=== PATIENT | female | born 1975 | race Caucasian/White ===

== ENCOUNTER 2017-12-04 10:47 | Inpatient (IN) | payer OTHER, SELFPAY ==
[2017-11-26 14:06] VITALS: BMI 25.4
[2017-12-04] VITALS (23 sets, daily range): BP systolic 102–125; BP diastolic 60–82; PULSE 86–107; RESP 12–20; TEMP 36.3–43; O2SAT 95–100
[2017-12-04 06:32] LABS: Urine Pregnancy, HCG Qual. Negative (Negative)
--- NOTE | 2017-12-04 06:57 | HMH.ANESCL ---
[facility] Anesthesia Checklist - Patient Identification Patient Identification: Arm Band, Verbal (Name & ) - Structural Data Admitted From: Home [facility] Procedure(s) Verified: Yes Verified Documents: Surgical Consent - NPO Status Verified Time NPO: 00:00 - Additional verifications Patient : No Anesthesia Reactions: Yes (n/v) Hx Blood Transfusions: No Blood Transfusion Reaction: No Cephalosporin Allergy: No Previous Colonoscopy: No - Cardiovascular Assessment Heart Sounds: S1 & S2 Pulse Strength: Strong Pulse Rhythm: Regular Peripheral Edema: No - Airway Assessment C-Spine Mobility Assessed: Yes TMJ Mobility Assessed: Yes Dentition: Good Dentition - Neurological Assessment Level of Consciousness: Awake, Alert, Appropriate Hx Seizures: No Numbness or tingling in extremities: No - Genitourinary Assessment Urinary Incontinence: None - Anesthesia Plan Anesthesia Risk discussed: Yes Anesthesia Plan: Verified ASA Class: II Anesthesia Type: General [facility] Anesthesia HX I have reviewed the patient's past medical history: Yes Medical History: Reports:: Gastroesophageal Reflux Disease Denies:: Cancer, Diabetes Mellitus Type 1, Diabetes Mellitus Type 2, MRSA, Seizures Laterality Cases: Left: ACL Repair, Bilateral: Tonsillectomy Other Surgeries: Yes: Dilation and Curettage, Other. No: Pacemaker Amputation: No Fractures: No *Family Hx:: Asthma, Coronary Artery Disease, Diabetes, Heart Attack, Hyperlipidemia, Hypertension, Kidney Disease
--- NOTE | 2017-12-04 07:02 | P.PN_ITS ---
[facility] Anesthesia Checklist - Patient Identification Patient Identification: Arm Band, Verbal (Name & ) - Structural Data Admitted From: Home [facility] Procedure(s) Verified: Yes Verified Documents: Surgical Consent - NPO Status Verified Time NPO: 00:00 - Additional verifications Patient : No Anesthesia Reactions: Yes (n/v) Hx Blood Transfusions: No Blood Transfusion Reaction: No Cephalosporin Allergy: No Previous Colonoscopy: No - Cardiovascular Assessment Heart Sounds: S1 & S2 Pulse Strength: Strong Pulse Rhythm: Regular Peripheral Edema: No - Airway Assessment C-Spine Mobility Assessed: Yes TMJ Mobility Assessed: Yes Dentition: Good Dentition - Neurological Assessment Level of Consciousness: Awake, Alert, Appropriate Hx Seizures: No Numbness or tingling in extremities: No - Genitourinary Assessment Urinary Incontinence: None - Anesthesia Plan Anesthesia Risk discussed: Yes Anesthesia Plan: Verified ASA Class: II Anesthesia Type: General [facility] Anesthesia HX I have reviewed the patient's past medical history: Yes Medical History: Reports:: Gastroesophageal Reflux Disease Denies:: Cancer, Diabetes Mellitus Type 1, Diabetes Mellitus Type 2, MRSA, Seizures Laterality Cases: Left: ACL Repair, Bilateral: Tonsillectomy Other Surgeries: Yes: Dilation and Curettage, Other. No: Pacemaker Amputation: No Fractures: No *Family Hx:: Asthma, Coronary Artery Disease, Diabetes, Heart Attack, Hyperlipidemia, Hypertension, Kidney Disease
[2017-12-04 07:13] LABS: Basophils # 0.1 K/mm3 (0-0.2); Eosinophils # 0.2 K/mm3 (0.0-0.4); Eosinophils % 3.7 % (0.1-12.0); Hematocrit 36.9 % (37.0-47.0); Hemoglobin 11.8 g/dL (12.2-16.2); Lymphocytes # 1.5 K/mm3 (0.7-4.5); Lymphocytes % 26.5 K/mm3 (10-50); Mean Corpuscular HGB Conc 32.1 g/dL (31.8-35.4); Mean Corpuscular Hemoglobin 28.1 pg (27.0-31.2); Mean Corpuscular Volume 87.7 fl (81-99); Mean Platelet Volume 7.8 fl (7.4-10.4); Monocytes # 0.5 K/mm3 (0.1-1.0); Monocytes % 9.7 % (1.7-9.3); Neutrophils # 3.3 K/mm3 (1.8-7.8); Neutrophils % 59.2 % (37.0-80.0); Platelet Count 356 K/mm3 (142-424); Red Blood Count 4.21 M/mm3 (4.20-5.40); Red Cell Distribution Width 13.5 % (11.5-17.5); White Blood Count 5.5 K/mm3 (4.8-10.8)
[2017-12-04 07:20] LABS: Anion Gap 7.8 mEq/L (5-15); Blood Urea Nitrogen 11 mg/dL (7-18); Carbon Dioxide 29 mmol/L (21.0-32.0); Chloride 105 mmol/L (98-107); Creatinine Clearance Estimated 98 mL/min (0-300); Creatinine,Serum 0.78 mg/dL (0.55-1.02); Estimated Glomerular Filt Rate 80 ml/min (>60); GFR (African American) 97 ML/MIN (>60); Glucose 85 mg/dL (74-106); Potassium 3.8 mmoL/L (3.5-5.1); Sodium 138 mmol/L (136-145)
--- NOTE | 2017-12-04 09:52 | HMH.OPNOTE ---
Date of procedure: 12/04/17 Pre-op Diagnosis:: Menorrhagia, fibroid uterus, pelvic pain, Post-op diagnosis:: same Procedure performed:: Laparoscopically assisted vaginal hysterectomy, left salpingo-oophorectomy, right salpingectomy Surgeon:: Wally Ireland MD Manager Games(s):: Dr. Bucio DIAPHRAGM BUILDER:: Yogesh Woo Anesthesia: GETA Estimated blood loss (mL): 250 Clinical Note:: She is a 42-year-old lady who complains of heavy painful periods. She has had a previous endometrial ablation and despite this continued to have heavy bleeding. When I examined her the uterus was extremely tender. I suspect she has adenomyosis. After having discussed the risks and benefits we elected to perform a laparoscopically assisted vaginal hysterectomy. Operative findings:: She had a bulky anteverted uterus. There were some fibroids within the uterus but they were not seen externally. Her ovaries appeared normal and somewhat atrophic. The tubes had been previously ligated. There was a small spot of endometriosis just below the left uterosacral ligament. On the right utero-ovarian ligament there was also either varicosities or small areas of endometriosis. These were separately removed. The rest the pelvis appear normal. The upper abdomen appeared normal. Operative note:: She was taken to the operating room where general anesthesia was found be adequate. She was prepped and draped in the normal sterile fashion in the semi-lithotomy position. A weighted speculum was placed in the vagina and the anterior lip of the cervix was grasped with a tenaculum. I inserted an acorn retractor into the cervical os. I then changed gloves and injected 10 mL of 0.5 percent ropivacaine around the umbilicus. I made a small incision within the umbilicus and inserted a Veress needle into the abdominal cavity. The abdominal cavity was then insufflated with carbon dioxide gas to a pressure of 20 millimeters of mercury. I then inserted an 11 mm trocar under direct vision. I injected through and through the pubic hairline, made a small incision here and inserted a 5 mm trocar under direct vision. I identified the inferior epigastric arteries on the LEFT side and went lateral to these and injected through and through. I made a small incision and inserted an 11 mm trocar under direct vision. This was similarly performed on the patient's RIGHT side. The LEFT round ligament was then grasped and cut with Harmonic scalpel. This was followed by the LEFT tube. I then cut through and cauterized the LEFT utero-ovarian ligament. I opened up the peritoneum anteriorly to the midline. I then took down the posterior aspect of the broad ligament to the level of the uterosacral ligament on the LEFT side. The uterine arteries on the LEFT side were then skeletonized. Hemoclips were placed across the uterine arteries and then the uterine arteries were cauterized with Harmonic scalpel adjacent to the cervix. We then further took down the bladder anteriorly. I grasped the RIGHT round ligament and cut through this with Harmonic scalpel. This was followed by the RIGHT tube. I then cauterized and cut the RIGHT utero-ovarian ligament with Harmonic scalpel. I then freed up the peritoneum anteriorly on the RIGHT side joining up with the midline. I then took down the posterior aspect of the broad ligament to the level of the uterosacral ligament. The uterine arteries on the RIGHT side were skeletonized. Hemoclips were applied to the uterine arteries. I then cauterized and cut the uterine arteries with Harmonic scalpel adjacent to the cervix. I freed up the bladder pillars on the RIGHT side and the LEFT side. I freed up the bladder anteriorly along the cervix. After assuring hemostasis and rinsing the pelvis well we then turned our attention to the fallopian tubes. The RIGHT fallopian tube was grasped at its distal end and cut along the meso salpinx. The tube was removed through the 11 mm trocar site. This was similarly performed o
--- NOTE | 2017-12-04 10:03 | HMH.ANESI ---
[facility] Anesthesia Record Part I Intake, IV Amount: 2,200 Estimated blood loss (mL): 250 Urine output (mL): 250 Blood Pressure: 111/63 SaO2: 98 Pulse Rate: 105 Respiratory Rate: 16 Temperature: 97.4 F Patient is:: Drowsy, Oral/Nasal airway Stable to PACU at:: 10:00
--- NOTE | 2017-12-04 10:04 | HMH.ANESII ---
[facility] Anesthesia Record Part II Discharge Time: 10:30 Destination: 2nd floor PACU nurse assessment reviewed?: Yes Patient Condition:: Good Anesthesia Complications:: None
--- NOTE | 2017-12-04 10:06 | P.OP_ITS ---
Date of procedure: 12/04/17 Pre-op Diagnosis:: Menorrhagia, fibroid uterus, pelvic pain, Post-op diagnosis:: same Procedure performed:: Laparoscopically assisted vaginal hysterectomy, left salpingo-oophorectomy, right salpingectomy Surgeon:: Wally Ireland MD Batch Tester(s):: Dr. Bucio RN BUILDING:: Yogesh Woo Anesthesia: GETA Estimated blood loss (mL): 250 Clinical Note:: She is a 42-year-old lady who complains of heavy painful periods. She has had a previous endometrial ablation and despite this continued to have heavy bleeding. When I examined her the uterus was extremely tender. I suspect she has adenomyosis. After having discussed the risks and benefits we elected to perform a laparoscopically assisted vaginal hysterectomy. Operative findings:: She had a bulky anteverted uterus. There were some fibroids within the uterus but they were not seen externally. Her ovaries appeared normal and somewhat atrophic. The tubes had been previously ligated. There was a small spot of endometriosis just below the left uterosacral ligament. On the right utero- ovarian ligament there was also either varicosities or small areas of endometriosis. These were separately removed. The rest the pelvis appear normal. The upper abdomen appeared normal. Operative note:: She was taken to the operating room where general anesthesia was found be adequate. She was prepped and draped in the normal sterile fashion in the semi- lithotomy position. A weighted speculum was placed in the vagina and the anterior lip of the cervix was grasped with a tenaculum. I inserted an acorn retractor into the cervical os. I then changed gloves and injected 10 mL of 0.5 percent ropivacaine around the umbilicus. I made a small incision within the umbilicus and inserted a Veress needle into the abdominal cavity. The abdominal cavity was then insufflated with carbon dioxide gas to a pressure of 20 millimeters of mercury. I then inserted an 11 mm trocar under direct vision. I injected through and through the pubic hairline, made a small incision here and inserted a 5 mm trocar under direct vision. I identified the inferior epigastric arteries on the LEFT side and went lateral to these and injected through and through. I made a small incision and inserted an 11 mm trocar under direct vision. This was similarly performed on the patient's RIGHT side. The LEFT round ligament was then grasped and cut with Harmonic scalpel. This was followed by the LEFT tube. I then cut through and cauterized the LEFT utero- ovarian ligament. I opened up the peritoneum anteriorly to the midline. I then took down the posterior aspect of the broad ligament to the level of the uterosacral ligament on the LEFT side. The uterine arteries on the LEFT side were then skeletonized. Hemoclips were placed across the uterine arteries and then the uterine arteries were cauterized with Harmonic scalpel adjacent to the cervix. We then further took down the bladder anteriorly. I grasped the RIGHT round ligament and cut through this with Harmonic scalpel. This was followed by the RIGHT tube. I then cauterized and cut the RIGHT utero- ovarian ligament with Harmonic scalpel. I then freed up the peritoneum anteriorly on the RIGHT side joining up with the midline. I then took down the posterior aspect of the broad ligament to the level of the uterosacral ligament. The uterine arteries on the RIGHT side were skeletonized. Hemoclips were applied to the uterine arteries. I then cauterized and cut the uterine arteries with Harmonic scalpel adjacent to the cervix. I freed up the bladder pillars on the RIGHT side and the LEFT side. I freed up the bladder anteriorly along the cervix. After
[2017-12-04 13:18] LABS: Appearance,Urine/Cath Clear (Clear); Blood, Urine/Cath Trace (Negative); Color,Urine/Cath Yellow (Yellow); Glucose,Urine/Cath (UA) Negative (Negative); Ketones,Urine/Cath Negative (Negative); Microscopic,Cath URINE MICROSCOPIC (MICROSCOPIC); Protein,Urine/Cath Negative (Negative)
[2017-12-04 13:19] LABS: Bacteria,Urine/Cath TRACE /lpf; Bilirubin,Cath Negative (Negative); Leukocyte Esterase,Cath Negative (Negative); Nitrate,Cath Negative (Negative); RBC,Urine/Cath Occasional # /hpf (0-3); Urobilinogen,Cath 0.2 EU/dl (0.2); WBC,Urine/Cath Occasional #/hpf (0-3)
[2017-12-04 13:26] LABS: Hematocrit 35.9 % (37.0-47.0); Hemoglobin 11.6 g/dL (12.2-16.2)
--- NOTE | 2017-12-04 16:20 | PC.NURSE ---
NO ACUTE CHANGES NOTED FROM PREVIOUS ASSESSMENT. LUNGS REMAIN CTA AND BOWEL SOUNDS HYPOACTIVE. PT. HAS FOUR INCISION SITES ON ABDOMEN WITH TELFA AND TEGADERM IN PLACE. SMALL AMOUNT OF BLEEDING NOTED TO DSG TO LEFT OF ABDOMEN AND MIDDLE. SEROSANG DRAINAGE NOTED. PT. REPORTS PAIN AN 8/10 RIGHT NOW. PAIN MEDS WERE GIVEN PER MAR. PT. BECAME NAUSEATED EARLIER ONTO SHIFT, ZOFRAN WAS GIVEN AND THIS WAS VERIFIED WITH PHARMACY. NOTED PTS. URINE OUTPUT TO BE DECREASED WITH A TOTAL OF [address] JAIMES ORDERED 1,000 ML BOLUS AT THIS TIME. GAVE PT. BOLUS WITH DESIRED RESULTS. URINE OUTPUT OF NOW IS 750ML. PT. HAS COMPLAINED OF GAS PAINS- MEDICATED PER MAR. PT. IS TOLERATING JELLO GOOD. NO EDEMA, NUMBNESS OR TINGLING NOTED. SPLINT PILLOW TO PTS. STOMACH. VITALS HAVE REMAINED WNL. PT. IS RESTING NOW IN BED. WILL PLAN TO GET PT. UP AFTER DINNER AND D/C BRAUN CATH. CALL LIGHT WITHIN REACH AND SAFETY MEASURES IN PLACE.
--- NOTE | 2017-12-04 17:43 | PC.NURSE ---
1427- LATE ENTRY: TALKED WITH DR. JAIMES ON TELEPHONE AND INFORMED HIM OF PTS. URINE OUTPUT AFTER 1,000 ML BOLUS OF LR. HE STATED THAT WAS BETTER AND IT IS OKAY TO D/C CATHETER AFTER DINNER. ALSO IT IS OKAY TO ADVANCE DIET TOLERATED.
--- NOTE | 2017-12-04 18:58 | PC.NURSE ---
REPORT GIVEN TO YURI
--- NOTE | 2017-12-04 19:05 | PC.NURSE ---
REPORT RECEIVED FROM BRYANTRN
[2017-12-05 04:00] VITALS: BP 90/47; PULSE 83; RESP 18; TEMP 36.8; O2SAT 99
--- NOTE | 2017-12-05 04:16 | PC.NURSE ---
Pt has rested well throughout the night. IV is now saline locked (lt f/a) and flushes well. Pt able to void well, no difficulties, and appropriate amounts. Lungs clear bilat, throughout. Continues to wear scuds while in bed. Ambulates without diff in room and without assist...+BS x4, hypoactive. Abdomen non-distended, soft. 4 lap sites to abdomen still with original surgical dressing. No recent vaginal bleeding or spotting. Tolerating regular diet well. VS WNL. afebrile. has remained at bs during the night and attentive to pt's needs. No edema. Overall has done extremely well this shift and is looking forward to being discharged later today.
[2017-12-05 07:11] LABS: Anion Gap 7.5 mEq/L (5-15); Blood Urea Nitrogen 8 mg/dL (7-18); Carbon Dioxide 28 mmol/L (21.0-32.0); Chloride 108 mmol/L (98-107); Creatinine Clearance Estimated 99 mL/min (0-300); Creatinine,Serum 0.77 mg/dL (0.55-1.02); Estimated Glomerular Filt Rate 81 ml/min (>60); GFR (African American) 99 ML/MIN (>60); Glucose 90 mg/dL (74-106); Potassium 3.5 mmoL/L (3.5-5.1); Sodium 140 mmol/L (136-145)
[2017-12-05 07:25] VITALS: BP 99/62; PULSE 76; RESP 16; TEMP 36.9; O2SAT 100
--- NOTE | 2017-12-05 07:25 | PC.NURSE ---
UPON ENTERING ROOM, PT IS SITTING UP ON SIDE OF THE BED WITH BREAKFAST TRAY; PT IS FINISHED WITH TRAY AND RN WILL REMOVE UPON LEAVING; PT STATES HER PAIN IS A 4/10 AND WOULD LIKE SOME PAIN MEDICATION PRIOR TO TAKING A SHOWER; PT'S BP WAS 99/62 - PT STATES THAT IS NORMAL FOR HER; IS AT BEDSIDE; CALL LIGHT AND BEDSIDE TABLE WITHIN REACH; PT REQUESTED A BANANA-RN WILL CALL DIETARY AND MAKE PT'S REQUEST FOR HER; NO OTHER NEEDS VOICED AT THIS TIME
--- NOTE | 2017-12-05 07:40 | PC.NURSE ---
DR JAIMES AT PT'S BEDSIDE AT THIS TIME
--- NOTE | 2017-12-05 07:44 | HMH.DCSUM ---
General - General Admission date: 12/04/17 Discharge date: 12/05/17 HPI HPI: She is a 42-year-old lady who complains of heavy periods. An ultrasound showed that she had a fibroid uterus. She had an ablation in the past and continued to have heavy bleeding and painful periods. As result of that she was offered laparoscopically assisted vaginal hysterectomy and bilateral salpingectomy. Objective Vital signs: Temp Pulse Resp BP Pulse Ox 98.2 F 83 18 90/47 99 12/05/17 04:00 12/05/17 04:00 12/05/17 04:00 12/05/17 04:00 12/05/17 04:00 no acute distress - *Routine HEENT Exam Head: Present: normocephalic - *Routine Respiratory Exam Comments: She has good air entry bilaterally. She is in no acute respiratory distress. - *Routine Cardiovascular Exam Present: Normal S1, Normal S2 - *Routine Abdominal Exam Present: soft, normoactive bowel sounds - *Routine Skin Exam Present: intact, warm Comments: Good color with no rashes. Hospital Course Hospital Course: On December 04, 2017 she underwent a laparoscopic-assisted vaginal hysterectomy, left salpingo-nephrectomy and right salpingectomy. At the time of surgery she had oozing and bleeding from the left ovary and despite cautery and hemoclips she continued to have bleeding. As a result of this I elected to remove her left ovary. She has done well postoperatively and has remained afebrile throughout her hospitalization. She is eating and drinking and ambulating. She is voiding well. Her incisions are clean and dry. She denies chest pain, shortness of breath or calf tenderness. She denies abnormal vaginal discharge. Results Labs on day of discharge: Labs from last 24 hours 12/05/17 12/04/17 12/04/17 06:10 13:19 09:00 Hgb 11.6 L Hct 35.9 L Sodium 140 Potassium 3.5 Chloride 108 H Carbon Dioxide 28 Anion Gap 7.5 BUN 8 D Creatinine 0.77 Estimated Creat Clear 99 Estimated GFR 81 Est GFR ( Amer) 99 Glucose 90 Urine Color Yellow Urine Appearance Clear Urine pH 6.0 Ur Specific Keeler 1.010 Urine Protein Negative Urine Glucose (UA) Negative Urine Ketones Negative Urine Blood Trace Urine Nitrate Negative Urine Bilirubin Negative Urine Urobilinogen 0.2 Ur Leukocyte Esterase Negative Urine RBC Occasional Urine WBC Occasional Ur Squamous Epith Cells 3-5 Urine Bacteria Trace Meds Home Medications Medication Instructions Recorded Confirmed Type Aspirin [Aspir 81] 81 mg PO DAILY 11/26/17 12/04/17 History Cetirizine HCl [Zyrtec] 10 mg PO DAILY 11/26/17 12/04/17 History Mometasone Furoate [Nasonex] 17 gm NS DAILY 11/26/17 12/04/17 History Amoxicillin/Potassium Clav 1 tab PO BID 12/04/17 12/04/17 History [Augmentin 500mg tab] oxycodone-acetaminophen 5 mg-325 PO 2 Days #30 12/10/17 History mg tablet valacyclovir 1 gram tablet PO 1 Days #4 12/10/17 History Allergies Allergy/AdvReac Type Severity Reaction Status Date / Time No Known Allergies Allergy Verified 12/10/17 11:58 Discharge Plan - Patient Discharge Instructions Additional Instructions: no heavy lifting, no strenuous activity, nothing in vagina for 6 weeks. Patient Instructions: Surgical Site Infection, DI for Postoperative Pain, Hysterectomy -- Laparoscopic Surgery - Follow up Plan Follow up with: Wally Ireland MD [Staff Physician] - Disposition: Home, Self-Prison Medications: Home Medications Medication Instructions Recorded Confirmed Type Aspirin [Aspir 81] 81 mg PO DAILY 11/26/17 12/04/17 History Cetirizine HCl [Zyrtec] 10 mg PO DAILY 11/26/17 12/04/17 History Mometasone Furoate [Nasonex] 17 gm NS DAILY 11/26/17 12/04/17 History Amoxicillin/Potassium Clav 1 tab PO BID 12/04/17 12/04/17 History [Augmentin 500mg tab] oxycodone-acetaminophen 5 mg-325 PO 2 Days #30 12/10/17 History mg tablet valacyc
--- NOTE | 2017-12-05 07:47 | P.DS_ITS ---
General - General Admission date: 12/04/17 Discharge date: 12/05/17 HPI HPI: She is a 42-year-old lady who complains of heavy periods. An ultrasound showed that she had a fibroid uterus. She had an ablation in the past and continued to have heavy bleeding and painful periods. As result of that she was offered laparoscopically assisted vaginal hysterectomy and bilateral salpingectomy. Objective Vital signs: Temp Pulse Resp BP Pulse Ox 98.2 F 83 18 90/47 99 12/05/17 04:00 12/05/17 04:00 12/05/17 04:00 12/05/17 04:00 12/05/17 04:00 no acute distress - *Routine HEENT Exam Head: Present: normocephalic - *Routine Respiratory Exam Comments: She has good air entry bilaterally. She is in no acute respiratory distress. - *Routine Cardiovascular Exam Present: Normal S1, Normal S2 - *Routine Abdominal Exam Present: soft, normoactive bowel sounds - *Routine Skin Exam Present: intact, warm Comments: Good color with no rashes. Hospital Course Hospital Course: On December 04, 2017 she underwent a laparoscopic-assisted vaginal hysterectomy, left salpingo-nephrectomy and right salpingectomy. At the time of surgery she had oozing and bleeding from the left ovary and despite cautery and hemoclips she continued to have bleeding. As a result of this I elected to remove her left ovary. She has done well postoperatively and has remained afebrile throughout her hospitalization. She is eating and drinking and ambulating. She is voiding well. Her incisions are clean and dry. She denies chest pain, shortness of breath or calf tenderness. She denies abnormal vaginal discharge. Results Labs on day of discharge: Labs from last 24 hours 12/05/17 12/04/17 12/04/17 06:10 13:19 09:00 Hgb 11.6 L Hct 35.9 L Sodium 140 Potassium 3.5 Chloride 108 H Carbon Dioxide 28 Anion Gap 7.5 BUN 8 D Creatinine 0.77 Estimated Creat Clear 99 Estimated GFR 81 Est GFR ( Amer) 99 Glucose 90 Urine Color Yellow Urine Appearance Clear Urine pH 6.0 Ur Specific Artemas 1.010 Urine Protein Negative Urine Glucose (UA) Negative Urine Ketones Negative Urine Blood Trace Urine Nitrate Negative Urine Bilirubin Negative Urine Urobilinogen 0.2 Ur Leukocyte Esterase Negative Urine RBC Occasional Urine WBC Occasional Ur Squamous Epith Cells 3-5 Urine Bacteria Trace Meds Home Medications Medication Instructions Recorded Confirmed Type Aspirin [Aspir 81] 81 mg PO DAILY 11/26/17 12/04/17 History Cetirizine HCl [Zyrtec] 10 mg PO DAILY 11/26/17 12/04/17 History Mometasone Furoate [Nasonex] 17 gm NS DAILY 11/26/17 12/04/17 History Amoxicillin/Potassium Clav 1 tab PO BID 12/04/17 12/04/17 History [Augmentin 500mg tab] oxycodone-acetaminophen 5 mg-325 PO 2 Days #30 12/10/17 History mg tablet valacyclovir 1 gram tablet PO 1 Days #4 12/10/17 History Allergies Allergy/AdvReac Type Severity Reaction Status Date / Time No Known Allergies Allergy Verified 12/10/17 11:58 Discharge
[2017-12-05 07:49] LABS: Red Blood Count 3.77 M/mm3 (4.20-5.40); White Blood Count 10.1 K/mm3 (4.8-10.8)
[2017-12-05 07:50] LABS: Basophils % 0.3 % (0.1-2.0); Eosinophils % 0.4 % (0.1-12.0); Hematocrit 33.6 % (37.0-47.0); Hemoglobin 10.7 g/dL (12.2-16.2); Lymphocytes # 1.4 K/mm3 (0.7-4.5); Lymphocytes % 14.2 K/mm3 (10-50); Mean Corpuscular HGB Conc 31.8 g/dL (31.8-35.4); Mean Corpuscular Hemoglobin 28.4 pg (27.0-31.2); Mean Corpuscular Volume 89.3 fl (81-99); Mean Platelet Volume 7.5 fl (7.4-10.4); Monocytes # 0.8 K/mm3 (0.1-1.0); Monocytes % 8.1 % (1.7-9.3); Neutrophils # 7.8 K/mm3 (1.8-7.8); Platelet Count 398 K/mm3 (142-424); Red Cell Distribution Width 13.7 % (11.5-17.5)
--- NOTE | 2017-12-05 08:15 | PC.NURSE ---
PT REQUESTED MEDS TO BEDS-RN TOOK PERMISSION FORM IN FOR PT TO SIGN; RN ADMINISTERED PT'S PAIN MEDICATION AND GOT PT EVERYTHING SHE NEEDED FOR HER SHOWER; PT ALSO REQUESTED SOME ICE WATER; NO OTHER NEEDS VOICED AT THIS TIME
--- NOTE | 2017-12-05 09:19 | PC.NURSE ---
PT SITTING UP IN BED ON PHONE; AT BEDSIDE; NO NEEDS OR CONCERNS VOICED AT THIS TIME
[2017-12-05 10:25] VITALS: BP 115/62; PULSE 77; RESP 18; TEMP 36.7; O2SAT 100
--- NOTE | 2017-12-05 10:40 | HMH.PHAVTE ---
[facility] Pharmacy VTE Monitoring - Patient Demographics Admission date: 12/04/17 Report Date: 12/05/17 Time: 10:41 Allergies/Adverse Reactions: No Known Allergies Allergy (Unverified 11/05/17 15:42) Height: 1.63 m Weight: 67.132 kg - VTE Risk Labs: VTE Related Lab Results Hgb 10.7 g/dL (12.2-16.2) L 12/05/17 06:38 Hct 33.6 % (37.0-47.0) L 12/05/17 06:38 Plt Count 398 K/mm3 (142-424) 12/05/17 06:38 BUN 8 mg/dL (7-18) D 12/05/17 06:10 Creatinine 0.77 mg/dL (0.55-1.02) 12/05/17 06:10 Estimated Creat Clear 99 mL/min (0-300) 12/05/17 06:10 Clinical Trial Participant: No - Prophylaxis VTE Prophylaxis Ordered?: Yes Types of VTE Prophylaxis: IPCS Knee High Location of Applied Device: Bilateral Lower Extremeties
== END 2017-12-05 10:30 | disposition home or self-care (01) | DRG 743 ==
LOC: OB 10:59
PROVIDERS: Admitting Provider Nurse Practitioner Obstetrics & Gynecology; Family Provider Internal Medicine Adolescent Medicine; PCP Nurse Practitioner Family; Visit Provider Nurse Practitioner Obstetrics & Gynecology
PROC: 0UT9FZZ Resection of Uterus, Via Natural or Artificial Opening With Percutaneous Endoscopic Assistance (ICD-10-PCS; principal; 2017-12-04 07:30)
DX: D25.1 Intramural leiomyoma of uterus (principal); N92.0 Excessive and frequent menstruation with regular cycle
CPT/HCPCS: 58552; 36415; 80048; 81001; 81025; 85014; 85018; 85025; 94761; 96372; 96374; J0131; J2270; J2405; J2710

== ENCOUNTER → 2017-12-10 12:26 | Outpatient (CLI) | payer OTHER, SELFPAY ==
[2017-12-10 12:42] LABS: Basophils % 0.4 % (0.1-2.0); Eosinophils # 0.4 K/mm3 (0.0-0.4); Eosinophils % 5.3 % (0.1-12.0); Hematocrit 32.1 % (37.0-47.0); Hemoglobin 10.3 g/dL (12.2-16.2); Lymphocytes # 0.8 K/mm3 (0.7-4.5); Lymphocytes % 9.9 K/mm3 (10-50); Mean Corpuscular Hemoglobin 28.3 pg (27.0-31.2); Mean Corpuscular Volume 88.5 fl (81-99); Mean Platelet Volume 8.1 fl (7.4-10.4); Monocytes # 0.6 K/mm3 (0.1-1.0); Monocytes % 7.1 % (1.7-9.3); Neutrophils # 6.2 K/mm3 (1.8-7.8); Neutrophils % 77.4 % (37.0-80.0); Platelet Count 406 K/mm3 (142-424); Red Blood Count 3.63 M/mm3 (4.20-5.40); Red Cell Distribution Width 13.4 % (11.5-17.5)
== END ==
PROVIDERS: PCP Internal Medicine Adolescent Medicine; Visit Provider Nurse Practitioner Obstetrics & Gynecology
DX: Z09 Encounter for follow-up examination after completed treatment for conditions other than malignant neoplasm (principal)
CPT/HCPCS: 85025

== ENCOUNTER 2017-12-16 16:11 | Observation (INO) | payer OTHER, SELFPAY ==
[2017-12-16] VITALS (21 sets, daily range): BP systolic 89–114; BP diastolic 52–74; PULSE 87–120; RESP 14–18; TEMP 36.1–37.3; O2SAT 98–100; BMI 24.9
[2017-12-16 12:26] LABS: Basophils # 0.1 K/mm3 (0-0.2); Basophils % 0.3 % (0.1-2.0); Eosinophils # 0.1 K/mm3 (0.0-0.4); Eosinophils % 0.8 % (0.1-12.0); Hematocrit 32.6 % (37.0-47.0); Hemoglobin 10.4 g/dL (12.2-16.2); Lymphocytes # 1.4 K/mm3 (0.7-4.5); Lymphocytes % 8.8 K/mm3 (10-50); Mean Corpuscular Hemoglobin 27.5 pg (27.0-31.2); Mean Corpuscular Volume 85.7 fl (81-99); Mean Platelet Volume 7.3 fl (7.4-10.4); Monocytes # 0.8 K/mm3 (0.1-1.0); Monocytes % 5.1 % (1.7-9.3); Neutrophils # 13.7 K/mm3 (1.8-7.8); Platelet Count 682 K/mm3 (142-424); Red Cell Distribution Width 13.4 % (11.5-17.5); White Blood Count 16.1 K/mm3 (4.8-10.8)
[2017-12-16 12:29] LABS: MANUAL DIFFERENTIAL MANUAL DIFFERENTIAL (MANUAL DIFF)
[2017-12-16 12:30] LABS: Anion Gap 15.4 mEq/L (5-15); Blood Urea Nitrogen 10 mg/dL (7-18); Carbon Dioxide 26 mmol/L (21.0-32.0); Chloride 102 mmol/L (98-107); Creatinine Clearance Estimated 83 mL/min (0-300); Estimated Glomerular Filt Rate 68 ml/min (>60); GFR (African American) 82 ML/MIN (>60); Glucose 86 mg/dL (74-106); Potassium 3.4 mmoL/L (3.5-5.1); Sodium 140 mmol/L (136-145)
[2017-12-16 12:53] LABS: Hypochromasia 1+; Lymphocytes % 3 % (10-50); Monocytes % 6 % (2-9); Neutrophils % 91 % (42-76); Platelet Estimate Moderate Increase; Total Cells Counted 100
--- NOTE | 2017-12-16 13:57 | SUR.PREOP ---
1135-CHECKED ON PT AT THIS TIME. GAVE PT ICE CHIPS AFTER BEING OKAYED BY KHADIJAH BARRIENTOS. PT DENIES ANY FURTHER NEEDS. PT RESTING IN STRETCHER. FAMILY AT BEDSIDE. 1330-RESPIRATORY THERAPY AT BEDSIDE TO OBTAIN EKG 1335-CHECK ON PT AT THIS TIME. OFFERED ASSISTANCE AND PT DENIED ANY NEEDS. PT RESTING IN STRETCHER.
--- NOTE | 2017-12-16 15:45 | P.OP_ITS ---
Date of procedure: 12/16/17 Pre-op Diagnosis:: Vaginal vault hematoma, possible vaginal vault abscess Post-op diagnosis:: same Procedure performed:: Drainage of vaginal vault hematoma Surgeon:: Wally Ireland MD DIRECTOR OF CUSTOMER SERVICE:: Derrick Thakkar Anesthesia: LMA Estimated blood loss (mL): 25 Clinical Note:: She is a 42-year-old lady who is about 12 days post surgery. She was having lower abdominal pain and occasional fever. Her white blood cell count was 16. An ultrasound in my office this morning showed that she had a 5 cm hematoma at the top of the vaginal vault. As a result of this she was offered drainage of this hematoma. I suspect it may be infected. Operative findings:: She had a small amount of foul-smelling blood at the top of the vault. Operative note:: She was taken to the operating room where LMA anesthesia was found be adequate. She was prepped and draped in normal sterile fashion in the lithotomy position. A weighted speculum was placed in the vagina and I used a packing forceps to open up the top of the vagina. I did not want to cause any damage so I opened up a couple of stitches at the top of the vagina with Metzenbaum scissors. Then using my finger I probed into the abdominal cavity. There was a small amount of foul-smelling discharge. Swabs were taken for anaerobic and aerobic cultures. I then rinsed the cavity with warm saline. I then packed the cavity with 1 inch iodoform gauze. She tolerated the procedure well and was taken to the recovery room in excellent condition. All sponge and instrument counts were correct. Estimated blood loss was less than 25 cc Pathology: none sent Condition: stable Disposition: PACU Specimens:: none Complications:: None
--- NOTE | 2017-12-16 15:52 | P.PN_ITS ---
[facility] Anesthesia Record Part I Intake, IV Amount: 300 Estimated blood loss (mL): 24 Urine output (mL): 200 Blood Products used (#): none Blood Pressure: 106/65 SaO2: 99 Pulse Rate: 120 Respiratory Rate: 18 Temperature: 97.0 F Patient is:: Awake, Stable Stable to PACU at:: 15:48
--- NOTE | 2017-12-16 15:53 | P.PN_ITS ---
[facility] Anesthesia Record Part II Discharge Time: 16:18 Destination: Surgical Day Care (OP Surgery) PACU nurse assessment reviewed?: Yes Patient Condition:: Good Anesthesia Complications:: None
--- NOTE | 2017-12-16 16:25 | PC.NURSE ---
RECEIVED REPORT FROM COUNSELING DEPARTMENT CHAIR, MICHAEL FENG REGARDING PT STATUS AND COMING TO OB UNIT POST OP/
--- NOTE | 2017-12-16 17:10 | PC.NURSE ---
DR. JAIMES UP TO SEE PT - REPORT GIVEN - NEW ORDERS RECEIVED - ADVANCE DIET TOLERATED AND CHANGE LR FROM 125 ML/HR TO 50 ML/HR. PT DENIES ANY N/V AT THIS TIME - CURRENTLY TOLERATING CLEARS WITHOUT PROBLEMS. DENIES ABD PAIN - ABD SOFT, NT, ND WITH BS X 4. 3 LAP SCARS NOTED TO BE WELL APPROX AND INTACT. UNABLE TO VISUALIZE VAGINAL PACKING - PT HAD SMALL AMT SEROSANGUINOUS DRAINAGE TO PAD ON BED. PT OOB TO BR FOR SCANT AMT URINE OUTPUT.
--- NOTE | 2017-12-16 17:35 | SUR.PHASEI ---
12/16/[address] Ireland regarding pt's wishes/request to be admitted overnight d/t concerns that she doesn't have anyone to stay with her longer than until 4 am and then will be alone. states pt to be admitted observation.
--- NOTE | 2017-12-16 17:57 | PC.NURSE ---
PT RESTING IN BED, TALKING ON PHONE - STATES PAIN MUCH BETTER. DENIES ANY OTHER COMPLAINTS AT THIS TIME.
--- NOTE | 2017-12-16 18:45 | PC.NURSE ---
PT SITTING UP IN BED, TOLERATING PO INTAKE WITHOUT ANY C/O N/V. IV INFUSING ORDERED. PT DENIES ANY FURTHER NEEDS OR COMPLAINTS AT THIS TIME.
--- NOTE | 2017-12-16 19:00 | PC.NURSE ---
charting by kassandra vasquez rn reviewed and agreed by this fiction writer.
--- NOTE | 2017-12-16 19:15 | PC.NURSE ---
Report received from Rossi Swartz RN
--- NOTE | 2017-12-16 19:16 | PC.NURSE ---
REPORT GIVEN TO Merari WILHELM RN
--- NOTE | 2017-12-16 23:40 | PC.NURSE ---
Pt somewhat hypotensive at this time. pt sleeping at this time. Pt easily awakened by verbal stimuli. pt denies dizziness. Pt states bp typically runs low. no distress noted at this time will continue to monitor
[2017-12-17 04:15] VITALS: BP 88/60; PULSE 88; RESP 16; TEMP 36.7; O2SAT 96
--- NOTE | 2017-12-17 04:15 | PC.NURSE ---
Pt resting comfortably at this time. pt easily aroused by verbal stimuli. Pt rates pain 2/10 on pain scale. pt bp 88/60 pt denies dizziness or headache no s/s of hypotension noted at this time. lungs clear to auscultate heart rate regular bs x 4, pt denies nausea at this time. pt states she is passing flatus. vaginal packing remains in place with minimal amount amount of vaginal bleeding noted. no edema noted. 20 g to RAC patent no s/s of infection noted. no needs voiced at this time no distress noted. will continue to monitor at this time
--- NOTE | 2017-12-17 07:11 | PC.NURSE ---
report given to Marshall Chua RN
[2017-12-17 07:30] LABS: Basophils % 0.4 % (0.1-2.0); Eosinophils # 0.3 K/mm3 (0.0-0.4); Eosinophils % 3.1 % (0.1-12.0); Hematocrit 28.6 % (37.0-47.0); Lymphocytes # 0.9 K/mm3 (0.7-4.5); Lymphocytes % 9.1 K/mm3 (10-50); Mean Corpuscular HGB Conc 32.1 g/dL (31.8-35.4); Mean Corpuscular Hemoglobin 27.9 pg (27.0-31.2); Mean Corpuscular Volume 86.9 fl (81-99); Mean Platelet Volume 7.4 fl (7.4-10.4); Monocytes # 0.5 K/mm3 (0.1-1.0); Monocytes % 5.2 % (1.7-9.3); Neutrophils # 8.5 K/mm3 (1.8-7.8); Neutrophils % 82.3 % (37.0-80.0); Platelet Count 570 K/mm3 (142-424); Red Blood Count 3.29 M/mm3 (4.20-5.40); Red Cell Distribution Width 13.4 % (11.5-17.5); White Blood Count 10.3 K/mm3 (4.8-10.8)
[2017-12-17 07:47] LABS: Hemoglobin 9.1 g/dL (12.2-16.2)
[2017-12-17 07:48] VITALS: BP 97/70; PULSE 94; RESP 16; TEMP 36.7; O2SAT 100
--- NOTE | 2017-12-17 07:50 | PC.NURSE ---
PT SITTING UP IN BED AT THIS TIME; PT STATES HER PAIN IF 4/10-LEFT [id number] MORE PT SITS UP THE MORE PAIN SHE'S IN; GROIN IS SLIGHTLY SWOLLEN-PT STATES IT IS DOWN FROM YESTERDAY; PT HAS SOME BRUISING AROUND THE UMBILICUS FROM PREVIOUS SURGERY; STATES SHE IS HAVING MINIMAL PINK TINGED BLEEDING; LR RUNNING @ 50 MLS/HR AT THIS TIME; PHARMACY HAS BEEN CALLED FOR NEXT DOSE OF CLINDAMYCIN; LUNGS ARE CLEAR THROUGHOUT-BILAT
--- NOTE | 2017-12-17 08:00 | PC.NURSE ---
DR JAIMES IN UNIT AT THIS TIME; RN NOTIFIES MD OF PT'S COMPLAINT OF LEFT GROIN PAIN
--- NOTE | 2017-12-17 08:10 | PC.NURSE ---
DR JAIMES AT PT'S BEDSIDE MAKING AM ROUNDS; STATES HE'LL DISCHARGE PT TODAY
--- NOTE | 2017-12-17 09:22 | HMH.DCSUM ---
General - General Admission date: 12/16/17 Discharge date: 12/17/17 HPI HPI: She is a 42-year-old who was 12 days post LAVH. She had fever and chills. She had lower abdominal pain. An ultrasound showed that she had a 4 cm vaginal vault hematoma. It was very tender to palpate. As result of that she was offered drainage of this vaginal vault hematoma. Objective Vital signs: Temp Pulse Resp BP Pulse Ox 98.0 F 94 H 16 97/70 100 12/17/17 07:48 12/17/17 07:48 12/17/17 07:48 12/17/17 07:48 12/17/17 07:48 no acute distress Hospital Course Hospital Course: She underwent a vaginal drainage of her vaginal vault hematoma. I suspect that it was infected. Her initial white blood cell count was 16 and this morning it is 10. She is feeling better and denies any fever or chills. She does have some discomfort on the left side of her pubic bone just above the labia on the left side. There does not seem to be any swelling or bruising in this area. It was tender to palpate. Results Labs on day of discharge: Labs from last 24 hours 12/17/17 12/16/17 12/16/17 06:31 11:49 11:49 WBC 10.3 D 16.1 H RBC 3.29 L 3.80 L Hgb 9.1 L D 10.4 L Hct 28.6 L 32.6 L MCV 86.9 85.7 MCH 27.9 27.5 MCHC 32.1 32.0 RDW 13.4 13.4 Plt Count 570 H 682 H MPV 7.4 7.3 L Neut % (Auto) 82.3 H 85.0 H Lymph % (Auto) 9.1 L 8.8 L [place] % (Auto) 5.2 5.1 Eos % (Auto) 3.1 0.8 Baso % (Auto) 0.4 0.3 Neut # (Auto) 8.5 H 13.7 H Lymph # (Auto) 0.9 1.4 [place] # (Auto) 0.5 0.8 Eos # (Auto) 0.3 0.1 Baso # (Auto) 0.0 0.1 Total Counted 100 Neutrophils % (Manual) 91 H Lymphocytes % (Manual) 3 L Monocytes % (Manual) 6 Platelet Estimate Moderate increase Hypochromasia 1+ Sodium 140 Potassium 3.4 L Chloride 102 Carbon Dioxide 26 Anion Gap 15.4 H BUN 10 Creatinine 0.90 Estimated Creat Clear 83 Estimated GFR 68 Est GFR ( Amer) 82 Glucose 86 DS: Diagnosis - Discharge Diagnosis (1) Vaginal vault hematoma Status: Acute Meds Home Medications Medication Instructions Recorded Confirmed Type Aspirin [Aspir 81] 81 mg PO DAILY 11/26/17 12/16/17 History Cetirizine HCl [Zyrtec] 10 mg PO DAILY 11/26/17 12/16/17 History Mometasone Furoate [Nasonex] 17 gm NS DAILY 11/26/17 12/16/17 History valacyclovir 1 gram tablet 1 gm PO NEEDED PRN 1 Days #4 12/10/17 12/16/17 History Allergies Allergy/AdvReac Type Severity Reaction Status Date / Time No Known Allergies Allergy Verified 12/16/17 16:59 Discharge Plan - Patient Discharge Instructions ACTIVITY: No heavy lifting DIET: continue same diet - Follow up Plan Disposition: Home, Self-Fpc Medications: Home Medications Medication Instructions Recorded Confirmed Type Aspirin [Aspir 81] 81 mg PO DAILY 11/26/17 12/16/17 History Cetirizine HCl [Zyrtec] 10 mg PO DAILY 11/26/17 12/16/17 History Mometasone Furoate [Nasonex] 17 gm NS DAILY 11/26/17 12/16/17 History valacyclovir 1 gram tablet 1 gm PO NEEDED PRN 1 Days #4 12/10/17 12/16/17 History Prescriptions/Medication Reconciliation: Continue valacyclovir 1 gram tablet 1 gm PO NEEDED PRN 1 Days #4 PRN Reason: fever blister Cetirizine HCl [Zyrtec] 10 mg PO DAILY Aspirin [Aspir 81] 81 mg PO DAILY Mometasone Furoate [Nasonex] 17 gm NS DAILY
--- NOTE | 2017-12-17 09:25 | P.DS_ITS ---
General - General Admission date: 12/16/17 Discharge date: 12/17/17 HPI HPI: She is a 42-year-old who was 12 days post LAVH. She had fever and chills. She had lower abdominal pain. An ultrasound showed that she had a 4 cm vaginal vault hematoma. It was very tender to palpate. As result of that she was offered drainage of this vaginal vault hematoma. Objective Vital signs: Temp Pulse Resp BP Pulse Ox 98.0 F 94 H 16 97/70 100 12/17/17 07:48 12/17/17 07:48 12/17/17 07:48 12/17/17 07:48 12/17/17 07:48 no acute distress Hospital Course Hospital Course: She underwent a vaginal drainage of her vaginal vault hematoma. I suspect that it was infected. Her initial white blood cell count was 16 and this morning it is 10. She is feeling better and denies any fever or chills. She does have some discomfort on the left side of her pubic bone just above the labia on the left side. There does not seem to be any swelling or bruising in this area. It was tender to palpate. Results Labs on day of discharge: Labs from last 24 hours 12/17/17 12/16/17 12/16/17 06:31 11:49 11:49 WBC 10.3 D 16.1 H RBC 3.29 L 3.80 L Hgb 9.1 L D 10.4 L Hct 28.6 L 32.6 L MCV 86.9 85.7 MCH 27.9 27.5 MCHC 32.1 32.0 RDW 13.4 13.4 Plt Count 570 H 682 H MPV 7.4 7.3 L Neut % (Auto) 82.3 H 85.0 H Lymph % (Auto) 9.1 L 8.8 L [place] % (Auto) 5.2 5.1 Eos % (Auto) 3.1 0.8 Baso % (Auto) 0.4 0.3 Neut # (Auto) 8.5 H 13.7 H Lymph # (Auto) 0.9 1.4 [place] # (Auto) 0.5 0.8 Eos # (Auto) 0.3 0.1 Baso # (Auto) 0.0 0.1 Total Counted 100 Neutrophils % (Manual) 91 H Lymphocytes % (Manual) 3 L Monocytes % (Manual) 6 Platelet Estimate Moderate increase Hypochromasia 1+ Sodium 140 Potassium 3.4 L Chloride 102 Carbon Dioxide 26 Anion Gap 15.4 H BUN 10 Creatinine 0.90 Estimated Creat Clear 83 Estimated GFR 68 Est GFR ( Amer) 82 Glucose 86 DS: Diagnosis - Discharge Diagnosis (1) Vaginal vault hematoma Status: Acute Meds Home Medications Medication Instructions Recorded Confirmed Type Aspirin [Aspir 81] 81 mg PO DAILY 11/26/17 12/16/17 History Cetirizine HCl [Zyrtec] 10 mg PO DAILY 11/26/17 12/16/17 History Mometasone Furoate [Nasonex] 17 gm NS DAILY 11/26/17 12/16/17 History valacyclovir 1 gram tablet 1 gm PO NEEDED PRN 1 Days #4 12/10/17 12/16/17 History Allergies Allergy/AdvReac Type Severity Reaction Status Date / Time No Known Allergies Allergy Verified 12/16/17 16:59 Discharge Plan - Patient Discharge Instructions ACTIVITY: No heavy lifting DIET: continue same diet - Follow up Plan Disposition: Home, Self-Long-Term Medications: Home Medications Medication Instructions Recorded Confirmed Type Aspirin [Aspir 81] 81 mg PO DAILY 11/26/17 12/16/17 History Cetirizine HCl [Zyrtec] 10 mg PO DAILY 11/26/17 12/16/17 History Mometasone Furoate [Nasonex] 17 gm NS DAILY 11/26/17 12/16/17 H
== END 2017-12-17 11:35 | disposition home or self-care (01) ==
LOC: OB 16:12
PROVIDERS: Admitting Provider Nurse Practitioner Obstetrics & Gynecology; Family Provider Internal Medicine Adolescent Medicine; PCP Internal Medicine Adolescent Medicine; Visit Provider Nurse Practitioner Obstetrics & Gynecology
PROC: (CPT 57023; principal; 2017-12-16 14:00)
DX: N99.841 Postprocedural hematoma of a genitourinary system organ or structure following other procedure (principal)
CPT/HCPCS: 57023; 80048; 85007; 85025; 87070; 87077; 87205; 93005; 96374; G0378; J0131; J2405

== ENCOUNTER → 2017-12-19 10:36 | Outpatient (CLI) | payer OTHER, SELFPAY ==
--- NOTE | 2017-12-19 10:37 | CT_ITS ---
CT abdomen wo/w con CLINICAL INDICATION: Status post hysterectomy one week ago with drainage pain and swelling at the surgical site. ORDERING PHYSICIAN: Wally Ireland MD PATIENT AGE: 42 years COMPARISON: 10/02/2017 TECHNIQUE: Axial images obtained without and with contrast. Sagittal and coronal reformats. PROCEDURE: Oral Contrast: Redicat IV Contrast: 75 mL of Isovue-370. FINDINGS: Lung bases are clear. Scattered isodensity is of the liver once again noted unchanged probably representing hepatic cysts measuring up to 1 cm on the right and 1.3 cm and the left hepatic lobe unchanged. The spleen, adrenal glands, pancreas, and kidneys have an unremarkable appearance. A small amount subcutaneous gas in the right lower abdominal wall likely postsurgical. No intestinal obstruction or free air.. There are post hysterectomy changes. A small collection of gas with an air-fluid level is present in the mid pelvic region in the uterine bed. This area measures 2.5 cm. There is increased soft tissue density within the pelvis consistent with postsurgical changes. Clips are present in the expected adnexal region bilaterally. There is a 4 x 3.9 cm fluid collection in the right adnexal area and a 3.8 x 3.3 some air fluid collection in the left adnexal area. There are clips also present in this region. There is some enhancement of the wall the fluid collection in the left adnexal region. There is thickening of the superior aspect of the urinary bladder with stranding of the fat in the pelvic region. There is also thickening of the sigmoid colon which traverses between the cystic adnexal abnormalities. There is only minimal thickening of the subcutaneous fat in the lower anterior abdominal wall. No abdominal wall abscess or hematoma. IMPRESSION: 1. Postsurgical changes of the pelvis status post interval hysterectomy. There is a 2.5 cm collection in the mid pelvic region with an air-fluid level suspicious for a small abscess. 2. Cystic changes in both adnexa. There is some enhancement of the wall of the cystic area on the left. Either one of these or both could be due to ovarian cysts or postoperative seromas. 3. Thickening of the sigmoid colon suspicious for colitis. 4. Thickening of the superior wall the urinary bladder with mild stranding of the adjacent fat consistent with postsurgical/inflammatory changes. None of these fluid collections are amenable to percutaneous CT drainage
== END ==
PROVIDERS: PCP Internal Medicine Adolescent Medicine; Visit Provider Nurse Practitioner Obstetrics & Gynecology
DX: T81.9XXA Unspecified complication of procedure, initial encounter (principal); Z48.89 Encounter for other specified surgical aftercare
CPT/HCPCS: 74170; Q9967

== ENCOUNTER → 2017-12-23 09:33 | Outpatient (CLI) | payer OTHER, SELFPAY ==
--- NOTE | 2017-12-23 09:35 | CT_ITS ---
CT abdomen pelvis wo/w con CLINICAL INDICATION: Severe pelvic pain following surgery. Follow-up fluid collections ORDERING PHYSICIAN: Wally Ireland MD PATIENT AGE: 42 years COMPARISON: 12/19/2017 TECHNIQUE: Axial images obtained with sagittal and coronal reformats. PROCEDURE: Oral Contrast: Gastroview IV Contrast: 75 mL Isovue-370. FINDINGS: Lower thorax: Lung bases are clear. Abdomen: Stable isodensity is within the liver consistent with hepatic cyst. The kidneys, adrenal glands, pancreas, and spleen are unremarkable. No hydronephrosis or hydroureter. No intestinal obstruction or free air. Pelvis: Bilateral adnexal fluid collections are once again noted. The collection in the left adnexal region measures 2.8 x 2.4 cm previously 3.8 x 3.3 cm. There is some minimal thickening of the wall. This is adjacent to pelvic clips. The right adnexal fluid collection is slightly larger measuring 5.5 x 3.6 cm previously 4.1 x 3.9 cm. This is multilocular containing some internal septations that were not previously demonstrated. There is persistent thickening of the superior wall the urinary bladder greater on the left. This is not significant change. There are stranding of the fat in the left lower quadrant lateral to the urinary bladder not segmentally change. There is thickening of the sigmoid colon which appears slightly improved. Small gas collection is once again noted superior to the vaginal cuff. This is slightly smaller. The symphysis pubis has an unremarkable appearance. No abdominal wall fluid collections or hematomas. IMPRESSION: 1. Left adnexal fluid collection is slightly smaller suggesting some improvement in either abscess or hematoma. 2. Right adnexal multilocular fluid collection is larger and could be related to an ovarian cyst. Patient does not report pain on the right. 3. Slight improvement in the thickening of the sigmoid colon with some persistent thickening at the rectosigmoid junction. 4. Persistent thickening along the urinary bladder wall on the left persistent inflammatory changes in the left lower quadrant and perirectal region.
[2017-12-23 10:06] VITALS: BMI 25.4
[2017-12-23 10:12] LABS: Basophils # 0.1 K/mm3 (0-0.2); Basophils % 0.8 % (0.1-2.0); Eosinophils # 0.2 K/mm3 (0.0-0.4); Eosinophils % 1.8 % (0.1-12.0); Hematocrit 35.2 % (37.0-47.0); Hemoglobin 10.7 g/dL (12.2-16.2); Lymphocytes # 1.3 K/mm3 (0.7-4.5); Mean Corpuscular HGB Conc 30.4 g/dL (31.8-35.4); Mean Corpuscular Hemoglobin 26.6 pg (27.0-31.2); Mean Corpuscular Volume 87.6 fl (81-99); Mean Platelet Volume 7.5 fl (7.4-10.4); Monocytes # 0.4 K/mm3 (0.1-1.0); Monocytes % 4.6 % (1.7-9.3); Neutrophils # 7.3 K/mm3 (1.8-7.8); Neutrophils % 78.8 % (37.0-80.0); Red Blood Count 4.02 M/mm3 (4.20-5.40); Red Cell Distribution Width 13.8 % (11.5-17.5); White Blood Count 9.3 K/mm3 (4.8-10.8)
[2017-12-23 10:30] LABS: Alanine Aminotransferase 18 U/L (12-78); Albumin Level 3.2 gm/dL (3.4-5.0); Albumin/Globulin Ratio 0.6 (1.1-1.8); Alkaline Phosphatase 64 U/L (46-116); Anion Gap 10.6 mEq/L (5-15); Aspartate Amino Transferase 14 U/L (15-37); Bilirubin,Total 0.1 mg/dL (0.2-1.0); Blood Urea Nitrogen 9 mg/dL (7-18); Calcium 8.8 mg/dL (8.5-10.1); Carbon Dioxide 28 mmol/L (21.0-32.0); Chloride 103 mmol/L (98-107); Creatinine Clearance Estimated 92 mL/min (0-300); Creatinine,Serum 0.83 mg/dL (0.55-1.02); Estimated Glomerular Filt Rate 75 ml/min (>60); GFR (African American) 90 ML/MIN (>60); Glucose 91 mg/dL (74-106); Potassium 3.6 mmoL/L (3.5-5.1); Sodium 138 mmol/L (136-145); Total Protein,Serum 8.2 gm/dL (6.4-8.2)
[2017-12-23 10:31] LABS: Platelet Count 1052 K/mm3 (142-424)
== END ==
PROVIDERS: PCP Internal Medicine Adolescent Medicine; Visit Provider Nurse Practitioner Obstetrics & Gynecology
DX: T81.9XXA Unspecified complication of procedure, initial encounter (principal); Z09 Encounter for follow-up examination after completed treatment for conditions other than malignant neoplasm
CPT/HCPCS: 74170; 80053; 85025; Q9967

== ENCOUNTER → 2018-05-19 09:50 | Outpatient (CLI) | payer OTHER, SELFPAY ==
--- NOTE | 2018-05-19 09:54 | CT_ITS ---
CT abdomen pelvis w con CLINICAL INDICATION: ITS.REASON: DYSURIA, RLQ PAIN ORDERING PHYSICIAN: Derrick Elizabeth MD PATIENT AGE: 42 years COMPARISON: 12/23/2017 TECHNIQUE: Axial images obtained with sagittal and coronal reformats. All CT scans at the facility use one or more dose reduction, viz: automated exposure control; ma/kV adjustment per patient size (including targeted exams where dose is matched to indication; i.e. head); or iterative reconstruction technique. PROCEDURE: Oral Contrast: Gastroview IV Contrast: 75 mL's Isovue-370 . FINDINGS: Lung bases are clear. There are several isodense nodules of the liver the largest in the medial segment of left hepatic lobe at 16 mm these are consistent with cysts not significantly changed. Small isodensity is present along the medial aspect of the spleen at 7 mm and may be due to small cyst unchanged. The pancreas and adrenal glands are unremarkable. No renal mass or hydronephrosis. No renal or ureteral calculi. No intestinal obstruction or free air is evident. No evidence of appendicitis or diverticulitis. There has been a prior hysterectomy. Complex cystic right pelvic mass measures 4.9 x 4.3 cm previously 6 x 4 cm. There are surgical clips near this region. This is probably related to an ovarian cyst or ovarian remnant with cyst. There is a small amount of fluid in the right side of the pelvis at the rectosigmoid junction nonspecific. The previously noted cystic lesion in the left adnexa is no longer apparent. No acute bony anomalies. IMPRESSION: 1. Prior hysterectomy with complex cystic right adnexal mass is slightly smaller from the previous exam with a small amount of fluid in the pelvis at the rectosigmoid junction nonspecific. 2. No evidence of appendicitis, diverticulitis, or obstructing ureteral calculus
== END ==
PROVIDERS: PCP Internal Medicine Adolescent Medicine; Visit Provider Internal Medicine Adolescent Medicine
DX: R10.31 Right lower quadrant pain (principal); R30.0 Dysuria
CPT/HCPCS: 74177; Q9967

== ENCOUNTER → 2018-09-01 14:13 | Outpatient (CLI) | payer OTHER, SELFPAY ==
--- NOTE | 2018-09-01 15:08 | CA_ITS ---
PROCEDURE: 2-D M-mode and color Doppler study INDICATIONS FOR THE TEST: Chest pain COPD Heart Murmur Tobacco Smoking Palpitations Fatigue Syncope Edema Hypertension Diabetes Mellitus Rheumatic Fever SOB DOEXObesity Hyperlipidemia Family History HD Additional History TACHYCARDIA PATIENT INFORMATION HEIGHT: 64 WEIGHT:150 GENDER: Female B/P:117/79 2-D/M-MODE INTERPRETATION: 2-D MEASUREMENTS OBSERVED VALUES IN CMS Right Ventricular Dimension (RVDd) 2.3 Interventricular Septum (Thickness)(IVsd) .7 Left Ventricular Internal Dimensions(LVIDd) 3.8 Left Ventricular Posterior Wall (Thickness)(LVPWd) .7 Aortic Root 3.1 Aortic Cusp Separation 1.9 Left Atrial Dimensions (LAD) 2.2 2D 1. Left atrium is normal size, left ventricle is normal size, there is no concentric left ventricular hypertrophy, visually estimated ejection fraction 55% with no regional wall motion abnormality. 2. The right atrium and right ventricle are normal size and contractility. 3. The aortic, mitral and tricuspid valvular grossly normal. 4. The pulmonic valve is poorly present. 5. No significant pericardial effusion noted. DOPPLER INTERROGATION: Doppler interrogation of the aortic, mitral and tricuspid valvular presence of trace mitral and tricuspid regurgitation, tricuspid regurgitation jet velocity insufficient for calculation of the right ventricular systolic pressure, diastolic parameters are within normal range. CONCLUSION: 1. The left ventricular size, preserved left ventricular systolic function, visually estimated ejection fraction 55% with no regional wall motion abnormality, diastolic parameters are within normal range. 2. Mild mitral and tricuspid regurgitation 3. No significant pericardial effusion noted.
== END ==
PROVIDERS: PCP Internal Medicine Adolescent Medicine; Visit Provider Internal Medicine
DX: R00.0 Tachycardia, unspecified (principal); R06.09 Other forms of dyspnea; R94.31 Abnormal electrocardiogram [ECG] [EKG]
CPT/HCPCS: 93017; 93225; 93226; 93306

== ENCOUNTER → 2018-10-08 08:07 | Outpatient (CLI) | payer OTHER, SELFPAY ==
--- NOTE | 2018-10-08 08:09 | MM_ITS ---
MM Dig screening mamm BI w/CAD ORDERING PHYSICIAN : Cassidy Larsen PATIENT AGE: 43 years GENDER: Female COMPARISON: September 2017, 2015, 2014. August 2014 INDICATION: ITS.REASON: Routine Screening Mammogram. No hormones. No new complaints. Previous breast cyst aspiration TECHNIQUE: Standard CC and MLO images were obtained. R2 CAD reviewed. Additional axillary cc views bilaterally FINDINGS: . Heterogeneous breast pattern with dense areas of fibroglandular elements towards upper outer quadrant bilaterally. RIGHT BREAST:No new findings of significant concern Stable asymmetric area of density at the upper outer quadrant right breast again noted. Unchanged since multiple previous studies including those dating back to 2010 LEFT BREAST:No new findings Stable area of density glandular elements superior Left breast-unchanged IMPRESSION: ----- Stable bilateral mammogram. Follow-up in one year recommended BI-RADS Category: 2 Benign Finding(s) RECOMMENDED FOLLOW-UP: 1YR 1 YEAR FOLLOW-UP (A letter has been sent to the patient regarding results of the study.)
== END ==
PROVIDERS: PCP Nurse Practitioner Family; Visit Provider Nurse Practitioner Family
DX: Z12.31 Encounter for screening mammogram for malignant neoplasm of breast (principal)
CPT/HCPCS: 77067

== ENCOUNTER → 2019-03-17 10:09 | Outpatient (CLI) | payer OTHER, SELFPAY | PROVIDERS: Visit Provider Internal Medicine Adolescent Medicine | DX: R30.0 Dysuria (principal) | CPT/HCPCS: 87086 ==

== ENCOUNTER → 2019-10-01 07:26 | Outpatient (CLI) | payer OTHER, SELFPAY ==
--- NOTE | 2019-10-01 07:31 | US_ITS ---
PROCEDURE: US THYROID CLINICAL INDICATION: THYROID NODULE Follow-up thyroid nodules COMPARISON: The report is delayed waiting on old films for comparison which have not been made available as of this reading date. Addendum may be given once old exam is made available for comparison. FINDINGS: Right lobe: 4 x 1.3 x 1.4 cm. Homogeneous echogenicity. 3 mm cyst mid polar region Left lobe: 4.2 x 1.1 x 1.1 cm with homogeneous echogenicity. 7 mm cyst upper pole 13 x 6 mm hypoechoic nodule lower pole with an arc of calcification anteriorly. Isthmus: Unremarkable Additional findings: IMPRESSION: 13 x 6 mm indeterminate nodule lower pole on the left. Suggest 6 month follow-up to confirm stability. Dictated by: Yunier Collins MD 10/01/2019 16:57 Electronically signed by Yunier Collins MD in [place] 10/08/2019 04:40
== END ==
PROVIDERS: PCP Nurse Practitioner Family; Visit Provider Nurse Practitioner Family
DX: E04.1 Nontoxic single thyroid nodule (principal)
CPT/HCPCS: 76536

== ENCOUNTER → 2019-10-14 09:08 | Outpatient (CLI) | payer OTHER, SELFPAY ==
--- NOTE | 2019-10-14 09:09 | MM_ITS ---
PROCEDURE: MM DIG SCREENING MAMM BI W/CAD CLINICAL INDICATION: SCREENING No personal or family history of breast cancer. COMPARISON: [facility] DIG MAMM-SCREEN DENI from 10/05/2016 [facility] DIG MAMM-SCREEN DENI W/CAD from 10/07/2017 [facility] MM Dig screening mamm BI w/CAD from 10/08/2018 TECHNIQUE: Standard CC and MLO images were obtained. R2 CAD reviewed. FINDINGS: Moderate fibroglandular densities are seen throughout both breasts most prominent upper outer quadrants. The findings are fairly symmetrical bilaterally. There is slightly asymmetrically increased glandular elements upper central portion left breast but this is stable and unchanged from previous exams. There is no suspicious lesion and no suspicious microcalcifications. IMPRESSION: Moderate breast density with no suspicious lesions seen BI-RAD Category: 1 Negative FOLLOW-UP: 1YR 1 Year Follow-up (A letter has been sent to the patient regarding results of the study.) Dictated by: Dr. Elio Jaramillo MD 10/15/2019 07:[address] Elio Jaramillo MD in [place] 10/15/2019 07:51
== END ==
PROVIDERS: PCP Nurse Practitioner Family; Visit Provider Nurse Practitioner Family
DX: Z12.31 Encounter for screening mammogram for malignant neoplasm of breast (principal)
CPT/HCPCS: 77067

== ENCOUNTER → 2020-06-02 10:31 | Outpatient (CLI) | payer OTHER, SELFPAY | PROVIDERS: Visit Provider Nurse Practitioner Family | DX: R30.0 Dysuria (principal) | CPT/HCPCS: 87086 ==

== ENCOUNTER → 2020-10-19 07:54 | Outpatient (CLI) | payer OTHER, SELFPAY ==
--- NOTE | 2020-10-19 07:57 | MM_ITS ---
PROCEDURE: MM DIG SCREENING MAMM BI W/CAD Referring Doctor: Cassidy Larsen Patient Age:45Y CLINICAL INDICATION: SCREENING: No hormones. No new complaints. . Previous cyst aspiration Noncontributory family history COMPARISON: MG DMDBAV DIG MAMM-DX DENI ADD VIEWS from 05/07/2013 MG DMSB DIG MAMM-SCREEN DENI from 09/13/2014 MG DMSB DIG MAMM-SCREEN DENI from 10/03/2015 MG DMSB DIG MAMM-SCREEN DENI from 10/05/2016 MG DMSB DIG MAMM-SCREEN DENI W/CAD from 10/07/2017 MG SCBI MM Dig screening mamm BI w/CAD from 10/08/2018 MG MM DIG SCREENING MAMM BI W/CAD from 10/14/2019 TECHNIQUE: Standard CC and MLO images were obtained. R2 CAD reviewed. Bilateral digital breast tomosynthesis included. Additional axillary CC views bilaterally FINDINGS: Moderate breast density towards upper-outer quadrant regions similar to previous studies, with no new dominant nor suspicious mass. No suspicious calcifications. Right breast: Stable pattern no new areas of concern follow-up 1 year Left breast-stable pattern with no new areas of concern follow-up in 1 year. Stable benign areas of mild asymmetric fibroglandular elements bilateral the IMPRESSION: Stable bilateral mammogram. No new areas of concern. Ongoing annual follow-up recommended BI-RAD Category: 2 Benign Finding(s) FOLLOW-UP: 1YR 1 Year Follow-up (A letter has been sent to the patient regarding results of the study.) Dictated by: Saleem Angeles MD 10/28/2020 10:08 Saleem Angeles MD in [place] 10/28/2020 10:08
== END ==
PROVIDERS: PCP Internal Medicine Adolescent Medicine; Visit Provider Nurse Practitioner Family
DX: Z12.31 Encounter for screening mammogram for malignant neoplasm of breast (principal)
CPT/HCPCS: 77063; 77067

== ENCOUNTER → 2020-11-25 13:40 | Outpatient (CLI) | payer OTHER, SELFPAY ==
--- NOTE | 2020-11-25 13:43 | XR_ITS ---
PROCEDURE: XR KNEE LT 4V CLINICAL INDICATION: LT MEDIAL KNEE PAIN COMPARISON: No exams were available for comparison FINDINGS: No fracture or dislocation. No lytic or blastic change. There is normal mineralization. Status post ACL repair. Calcific density is present in the infrapatellar region at 6 mm. This may be medial as seen on the patellar view. Other findings:None. IMPRESSION: Prior ACL repair with loose body medially Dictated by: Yunier Collins MD 11/25/2020 16:01 Yunier Collins MD in [place] 11/25/2020 16:01
== END ==
PROVIDERS: PCP Internal Medicine Adolescent Medicine; Visit Provider Internal Medicine Adolescent Medicine
DX: M25.562 Pain in left knee (principal)
CPT/HCPCS: 73564

== ENCOUNTER 2020-12-01 14:00 | Outpatient (RCR) | payer OTHER, SELFPAY ==
--- NOTE | 2020-11-28 10:57 | HMH.PTOPEV ---
PT Outpatient Evaluation Rehab PT Outpatient Evaluation Start: 11/28/20 09:57 Freq: Status: Active Protocol: Document 11/28/20 10:14 EZEQUIEL (Rec: 11/28/20 10:57 EZEQUIEL [id number]) Electronically Signed By Charlie Salinas, PT 11/28/20 10:14 Outpatient Therapy Subjective History Subjective History Pt reports acute onset L knee pain following 'twisting buckling' injury on 11/18/20. Pt reports 'locking' and then ' popping' incident on 11/25/20 in the L knee, 'but it's popped back in, and it feels much better right now'. Pt reports medial aspect L knee pain localized. PMH: L knee ACL recon. 2007 Chief Complaint Pain,Catches/Locks,Gives out/ Unstable Symptom Type Ache,Sharp,Dull Symptoms Relieved By Rest/Positioning,Ice Symptoms Aggravated By Physical Activity,Twisting, Walking Prior Functional Limitations None Current Functional Limitations Housework,Squatting,Walking Symptom Description Intermittent Level of pain today (0-10) 0 Pain scale - at its best (0-10) 0 Pain scale - at its worst (0-10) 6 Hip/Knee Eval Gait Observation General Gait Pattern Observation No Deviations/Normal Palpation Tenderness left Knee Palpation Finding Tenderness Knee Palpation Overall Comment medial jt line 3/4 MMT Hip Flexion Strength Grade 5 Normal Hip Abduction Strength Grade 4 Good Hip Adduction Strength Grade 4 Good Hip Extension Strength Grade 4 Good Hip External Rotation Strength Grade 4 Good Hip Internal Rotation Strength Grade 4- Good- Knee Extension Strength Grade 4- Good- Knee Flexion Strength Grade 5 Normal ROM Knee Flexion Active Range of Motion ( 0-130 degrees) Special Tests Knee Anterior Shamika Test Negative Left Knee Valgus Stress Test Negative Left Knee Varus Stress Test Negative Left Knee Dave Test Positive Left Outpatient Therapy Assessment Impairments Problems/Impairmments Palpation Tenderness,Impaired Strength,Impaired Walking, Impaired Household Care, Impaired Stair Climbing, Impaired Squatting,Subjective C/O Pain,Impaired Self Care/ Self Management Prognosis Rehab Potential Good Clinical Impression Consistent with Diagnosis Y
== END 2020-12-01 14:05 | disposition home or self-care (01) ==
LOC: PT 14:00
PROVIDERS: PCP Internal Medicine Adolescent Medicine; Visit Provider Internal Medicine Adolescent Medicine
DX: S86.912A Strain of unspecified muscle(s) and tendon(s) at lower leg level, left leg, initial encounter (principal)
CPT/HCPCS: 97014; 97016; 97035; 97110; 97163; G0283

== ENCOUNTER → 2020-12-02 08:28 | Outpatient (CLI) | payer OTHER, SELFPAY ==
--- NOTE | 2020-12-02 08:30 | MR_ITS ---
PROCEDURE: MR KNEE LT WO CON CLINICAL INDICATION: STRAIN OF LEFT KNEE, LEFT MEDIAL KNEE PAIN COMPARISON: CR XR KNEE LT 4V from 11/25/2020 TECHNIQUE: Routine multiplanar multi echo sequences are performed without gadolinium enhancement. FINDINGS: There has been a prior ACL repair. Artifact is present from the screws within the distal femur and proximal tibia. The graft appears to be intact. The PCL has an unremarkable appearance. The collateral ligaments have an unremarkable appearance. The patellar tendon and quadriceps tendon appear intact. There is some minimal thinning the patellar cartilage which may be due to mild chondromalacia patella. There is a complex tear involving the posterior horn of the medial meniscus with both a longitudinal and horizontal component. The anterior horn of the medial meniscus also has an abnormal appearance with a defect within the anterior horn anteriorly and suggestion of a flipped meniscal fragment into the intercondylar region. Unremarkable bone marrow signal intensity. IMPRESSION: 1. Complex tear involves the posterior horn of the medial meniscus. 2. There is also tear of the anterior horn of the medial meniscus with flipped meniscal fragment into the intercondylar notch 3. Prior ACL repair with artifact. The ACL graft does appear intact 4. 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
== END ==
PROVIDERS: PCP Internal Medicine Adolescent Medicine; Visit Provider Nurse Practitioner Family
DX: M25.562 Pain in left knee (principal); S86.912A Strain of unspecified muscle(s) and tendon(s) at lower leg level, left leg, initial encounter
CPT/HCPCS: 73721

== ENCOUNTER → 2021-01-02 12:28 | Outpatient (CLI) | payer OTHER, SELFPAY | PROVIDERS: PCP Internal Medicine Adolescent Medicine; Visit Provider Orthopaedic Surgery | DX: Z01.812 Encounter for preprocedural laboratory examination (principal); Z20.822 Contact with and (suspected) exposure to COVID-19 | CPT/HCPCS: U0003 ==

== ENCOUNTER 2021-02-02 11:00 | Outpatient (RCR) | payer OTHER, SELFPAY | END 2021-02-02 11:05 | disposition home or self-care (01) | LOC: PT 11:00 | PROVIDERS: PCP Internal Medicine Adolescent Medicine; Visit Provider Orthopaedic Surgery | DX: S83.282D Other tear of lateral meniscus, current injury, left knee, subsequent encounter (principal) | CPT/HCPCS: 97014; 97016; 97110; 97163; G0283 ==

== ENCOUNTER → 2021-05-11 13:48 | Outpatient (CLI) | payer OTHER, SELFPAY | PROVIDERS: Visit Provider Internal Medicine Adolescent Medicine | DX: R30.0 Dysuria (principal) | CPT/HCPCS: 87086; 87088; 87186 ==

== ENCOUNTER → 2021-10-23 07:57 | Outpatient (CLI) | payer OTHER, SELFPAY ==
--- NOTE | 2021-10-23 07:59 | MM_ITS ---
PROCEDURE INFORMATION: Exam: MG Bilateral Screening 3D Mammography Exam date and time: 10/23/2021 7:59 AM Age: 46 years old Clinical indication: Encounter for screening mammogram for malignant neoplasm of breast TECHNIQUE: Imaging protocol: Bilateral screening tomosynthesis and 2D mammography including computer-aided detection (CAD) when performed. COMPARISON: 1. MG MM DIG SCREENING MAMM BI W/CAD 10/19/2020 8:46 AM 2. MG MM DIG SCREENING MAMM BI W/CAD 10/14/2019 9:20 AM FINDINGS: MAMMOGRAPHY: Breast composition: The breast tissue is heterogeneously dense, which may obscure small masses. Mass: None. Architectural distortion: None. Calcifications: No suspicious calcifications. Asymmetric density: None. Skin thickening: None. Axillary adenopathy: None. IMPRESSION: No mammographic evidence of malignancy. Annual screening is recommended unless otherwise clinically indicated. ASSESSMENT: BI-RADS Category 1: Negative
== END ==
PROVIDERS: PCP Internal Medicine Adolescent Medicine; Visit Provider Internal Medicine Adolescent Medicine
DX: Z12.31 Encounter for screening mammogram for malignant neoplasm of breast (principal)
CPT/HCPCS: 77063; 77067

== ENCOUNTER → 2022-06-11 14:38 | Outpatient (CLI) | payer OTHER, SELFPAY ==
--- NOTE | 2022-06-11 14:41 | US_ITS ---
FINAL REPORT TECHNIQUE: Sonographic images of the thyroid gland were obtained in the longitudinal and transverse planes. CLINICAL HISTORY: THYROID NODULE COMPARISON: 10/01/2019 FINDINGS: The right lobe measures 3.6 x 1.4 x 1.1 cm. The left lobe measures 4.0 x 1.4 x 1.2 cm. The isthmus measures 3 mm which is normal. The gland is homogeneous. In the right lobe there are two hypoechoic nodules. The largest is new and measures 6 mm, it is wider than it is tall. There are no calcifications. In the left lobe there is a hypoechoic 1.1 cm nodule with dense peripheral calcification. A 5 mm hypoechoic nodule is identified in the isthmus that is wider than it is tall. There are no other nodules identified. The surrounding soft tissues are normal. Color imaging of the gland is within normal limits. IMPRESSION: TI-RADS 4 nodules in the isthmus and right lobe. No current recommendation for follow-up based on size. Stable TI-RADS 4 left lobe nodule with dense calcifications. Recommend continued follow-up Reviewed, Interpreted and Dictated by Filomena Baker MD Transcribed by Rasheeda Fragoso Authenticated and [facility]
== END ==
PROVIDERS: PCP Internal Medicine Adolescent Medicine; Visit Provider Nurse Practitioner Family
DX: E04.1 Nontoxic single thyroid nodule (principal)
CPT/HCPCS: 76536

== ENCOUNTER → 2022-11-13 09:18 | Outpatient (CLI) | payer OTHER, SELFPAY ==
--- NOTE | 2022-11-13 09:22 | MM_ITS ---
PROCEDURE INFORMATION: Exam: MG Bilateral Screening 3D Mammography Exam date and time: 11/13/2022 9:23 AM Age: 47 years old Clinical indication: Screening examination TECHNIQUE: Imaging protocol: Bilateral Screening tomosynthesis and 2D mammography including computer-aided detection (CAD) when performed. COMPARISON: 1. MG MM DIG SCREENING MAMM BI W/CAD 10/23/2021 7:56 AM 2. MG MM DIG SCREENING MAMM BI W/CAD 10/19/2020 8:46 AM FINDINGS: MAMMOGRAPHY: Breast composition: There are scattered areas of fibroglandular density. Mass: None. Architectural distortion: None. Calcifications: No suspicious calcifications. Asymmetric density: None. Skin thickening: None. Axillary adenopathy: None. IMPRESSION: No mammographic evidence of malignancy. Annual screening is recommended unless otherwise clinically indicated. ASSESSMENT: BI-RADS Category 1: Negative
== END ==
PROVIDERS: PCP Internal Medicine Adolescent Medicine; Visit Provider Nurse Practitioner Family
DX: Z12.31 Encounter for screening mammogram for malignant neoplasm of breast (principal)
CPT/HCPCS: 77063; 77067

== ENCOUNTER 2022-11-16 08:57 | Emergency (ER) | payer OTHER, SELFPAY ==
[2022-11-16 09:19] VITALS: BP 108/72; PULSE 86; RESP 17; TEMP 37.1; O2SAT 98; BMI 28.1
[2022-11-16 09:27] LABS: UTC Influenza A Antigen Negative (Negative); UTC Influenza B Antigen Negative (Negative)
[2022-11-16 09:28] LABS: UTC Strep Screen (Rapid) Negative (Negative)
--- NOTE | 2022-11-16 09:28 | EXP.UTC ---
Discharge Plan Disposition Patient Disposition: Home, Self-Care Condition: Good Prescriptions Prescriptions: New azithromycin [Zithromax Z-Paul] 250 mg tablet See Rx Instructions .ROUTE .COMPLEX 5 Days Qty: 6 0RF Rx Instructions: For 250 mg dose pack: take 500 mg today (day 1), then 250 mg for 4 days (days 2-5) methylprednisolone [Medrol (Paul)] 4 mg tablets,dose pack See Rx Instructions .Route .COMPLEX 6 Days Qty: 21 0RF Rx Instructions: taper pack; No Action omeprazole 40 mg capsule,delayed release(DR/EC) 40 mg PO DAILY azelastine 137 mcg (0.1 %) aerosol,spray 137 mcg intranasal DAILY Alavert D-12 Allergy-Sinus 5-120 mg tablet extended release 12 hr 1 tab PO Q12H diazepam 5 mg tablet 5 mg PO DAILY bisoprolol fumarate 5 mg tablet 5 mg PO DAILY Rx Instructions: take 1/2 TO 1 tablet BY MOUTH EVERY DAY DIRECTED cetirizine 10 MG tablet 10 mg PO DAILY Referrals Follow up/Referrals: Derrick Elizabeth MD [Primary Care Provider] - See instructions Activity Restrictions/Add. Instructions Additional Instructions/Restrictions: *Monitor Temp, Over the counter Motrin or Tylenol as directed/as needed Tylenol every 4 hours and Motrin every 6 hours (as long as your family doctor has told you that you can take it) for fever or pain. and straight to ER if unable to lower temp less than 101.0 after medication given *Warm salt water gargles may help to soothe the throat *Throat Lozenges? *Warm fluids like tea with honey may help to soothe the throat? *Sleep elevated *Humidifier/Vaporizer Your throat swab was sent for culture. Those results are typically sent to your primary care. Be sure to follow up in 2-3 days with your family doctor/primary care physician if no improvement so they can review those result and treat if necessary. If you don?t have a primary care doctor, I recommend you get one but in the mean time, you will have to return to a walk in clinic Follow up IMMEDIATELY for new or worsening symptoms or no Noticeable improvement over the next 48-72 hours. 911 for difficulty breathing or swallowing Clinical Impressions Clinical Impression: URI (upper respiratory infection) Instructions Patient Instructions: Sore Throat, DI for Sinusitis Discharge ED Provider: Destiny Montes De O[facility] General Stated complaint: Sore throat Mode of Arrival: Ambulatory Source of Information: Patient Limitations: No Limitations Time Seen by Provider: 11/16/22 09:28 Description of Symptoms (Recalled from Triage Doc. by RN): pt comes in with c/o sore throat, cough. ongoing since she had the flu recently. pt states that she has bumps on her tongue. HEENT Symptoms (Recalled from RN notes): Yes Resp Symptoms (Recalled from RN notes): Yes Skin Symptoms (Recalled from RN notes): No MS Symptoms (Recalled from RN notes): No Functional Status (Recalled from RN notes): n/a History of Present Illness Provider Complaint: Patient states that she had the flu about 3 weeks ago states that since then she has had ongoing cough States that she did take some mucinex and it did help a little States that now she is having sore throat and feels like she has some little bumps on her tongue worried that she may have strep throat Related Data Home Medications Medication Instructions Recorded Confirmed cetirizine 10 mg tablet 10 mg PO DAILY allergies 11/26/17 11/16/22 azelastine 137 mcg (0.1 %) nasal 137 mcg intranasal DAILY allergies 08/15/22 11/16/22 spray aerosol diazepam 5 mg tablet 5 mg PO DAILY Anxiety 08/15/22 11/16/22 loratadine 5 mg-pseudoephedrine ER 1 tab PO Q12H allergies 08/15/22 11/16/22 120 mg tablet,extended release,12hr (Alavert D-12 Allergy-Sinus) omeprazole 40 mg capsule,delayed 40 mg PO DAILY Reflux/Acid reflux 08/15/22 11/16/22 release bisoprolol fumarate 5 mg tablet 5 mg PO DAILY HTN 09/04/22 11/16/22 Previous Rx's [facility]
[2022-11-16 09:41] VITALS: BP 108/72; PULSE 86; RESP 17; TEMP 37.1
== END 2022-11-16 09:48 | disposition home or self-care (01) ==
PROVIDERS: Emergency Provider Nurse Practitioner; PCP Internal Medicine Adolescent Medicine
DX: J06.9 Acute upper respiratory infection, unspecified (principal)
CPT/HCPCS: 87804; 87880; 99212; G0463

== ENCOUNTER 2023-03-13 09:45 | Day surgery (SDC) | payer OTHER, SELFPAY ==
[2023-03-13 11:14] VITALS: BP 113/68; PULSE 78; RESP 20; TEMP 36.1; O2SAT 100; BMI 27.4
[2023-03-13 12:33] VITALS: O2SAT 97
--- NOTE | 2023-03-13 12:46 | HMH.SCOPE ---
Procedure: Date: 03/13/23 Patient Date of :: 1975 Procedure Performed:: Colonoscopy Indications:: Screening colonosocpy Performing Provider:: Ricki Mcgill MD Referring Provider:: Josesito Elizabeth MD Sedation:: See RN records Procedure:: After placing the patient in the left lateral decubitus position, the colonoscopy was gently inserted into the rectum and under direct visualization advanced to the cecum which was identified by transillumination in the right lower quadrant, identification of the ileocecal valve, appendiceal orifice, and cecal strap. Color, texture, mucosa, and anatomy of the colon were carefully examined with the scope. Findings:: Anal canal: normal Rectum: normal Sigmoid colon: sessile polyp 5 mm in size. Removed with cold snare polypectomy Descending colon: normal without polyps or inflammatory changes Splenic flexure: normal Transverse colon: normal without polyps or inflammatory changes Hepatic flexure: normal Ascending colon: normal without polyps or inflammatory changes Cecum: normal Terminal ileum: not visualized Impression: Polyp of sigmoid colon Recommendations:: Await pathology results Repeat colonoscopy in 5 years Complications:: none Estimated blood obtained (mL): 0
[2023-03-13 12:50] VITALS: BP 90/52; PULSE 81; RESP 18; TEMP 36.3; O2SAT 99
[2023-03-13 13:00] VITALS: BP 106/64; PULSE 85; RESP 18; O2SAT 98
--- NOTE | 2023-03-13 13:08 | EXP.ANES.CKL ---
[facility] Disclaimer: The information contained in this section may have been updated after the patient was seen, as this information can be updated by other users. Medical History Kidney stone Palpitations Thyroid Nodule Surgical History History of meniscectomy of left knee History of tonsillectomy and adenoidectomy Hx of section Hx of colonoscopy Hx of cystoscopy Hx of esophagogastroduodenoscopy Hx of hysterectomy Hx of reconstruction of anterior cruciate ligament tear Family History Other Family history of diabetes mellitus type II Family hx of hypertension Social History (Updated 03/13/23 @ 11:11 by Analisa Irby RN) Smoking Status: Never smoker second hand exposure: No alcohol intake: current substance use type: denies use current occupational status: employed Travel in the last 8 weeks: None household members: children housing: house lives independently: Yes marital status: single education level: college current occupation: [employer] current occupational exposures/hazards: No caffeine: No special sindy needs: No agree to transfusion: No do you feel safe at home: Yes victim of physical abuse: No victim of emotional abuse: No victim of sexual abuse: No would you like helpful sources: No [employer] Anesthesia Checklist Patient Identification Patient Identification: Verbal (Name & ) Structural Data Admitted From: Home Planned Operative Procedure/s: colonoscopy Consent for Planned Operative Procedure(s) Verified: Yes Additional verifications Anesthesia Reactions: Yes (n/v) Hx Blood Transfusions: No Blood Transfusion Reaction: No Airway Assessment C-Spine Mobility Assessed: Yes TMJ Mobility Assessed: Yes Dentition: Good Dentition Neurological Assessment Level of Consciousness: Awake, Alert and Appropriate Anesthesia Plan Anesthesia Risk discussed: Yes Anesthesia Plan: Verified ASA Class: II Anesthesia Type: MAC
[2023-03-13 13:10] VITALS: BP 139/52; PULSE 72; RESP 18; O2SAT 98
[2023-03-13 13:20] VITALS: BP 112/87; PULSE 71; RESP 18; O2SAT 98
== END 2023-03-13 13:25 | disposition home or self-care (01) ==
PROVIDERS: PCP Internal Medicine Adolescent Medicine; Visit Provider Internal Medicine
PROC: 0DJD8ZZ Inspection of Lower Intestinal Tract, Via Natural or Artificial Opening Endoscopic (ICD-10-PCS; CPT 45378; principal; 2023-03-13 11:00)
DX: Z12.11 Encounter for screening for malignant neoplasm of colon (principal); D12.5 Benign neoplasm of sigmoid colon; Z79.899 Other long term (current) drug therapy
CPT/HCPCS: 45385

== ENCOUNTER → 2023-07-29 12:46 | Outpatient (CLI) | payer OTHER, SELFPAY ==
--- NOTE | 2023-07-29 12:46 | US_ITS ---
FINAL REPORT TECHNIQUE: Real-time grayscale and color ultrasound of the thyroid was performed. CLINICAL HISTORY: multiple thyroid nodules COMPARISON: 06/11/2022 FINDINGS: The thyroid gland measures 43 mm on the right and 43 mm on the left. The isthmus measures 2 mm. Nodules: Right 7 x 6 x 5 mm solid isoechoic TR 3 nodule. Right 2 x 2 x 1 mm cystic TR 1 nodule. Left 6 x 5 x 4 mm large peripheral rim calcified solid hypoechoic TR 4 nodule. IMPRESSION: Bilateral thyroid nodules as above. No recommendations per TI-RADS criteria. Reviewed, Interpreted and Dictated by Jose Latham III, MD Transcribed by Eli López Authenticated and [facility]
== END ==
PROVIDERS: PCP Internal Medicine Adolescent Medicine; Visit Provider Otolaryngology
DX: E04.1 Nontoxic single thyroid nodule (principal)
CPT/HCPCS: 76536

== ENCOUNTER → 2023-11-14 09:52 | Outpatient (CLI) | payer OTHER, SELFPAY ==
--- NOTE | 2023-11-14 09:56 | MM_ITS ---
PROCEDURE INFORMATION: Exam: MG Bilateral Screening 3D Mammography Exam date and time: 11/14/2023 9:51 AM Age: 48 years old Clinical indication: Screening mammogram. TECHNIQUE: Imaging protocol: Bilateral Screening tomosynthesis and 2D mammography including computer-aided detection (CAD) when performed. COMPARISON: 1. MG MM DIG SCREENING MAMM BI W/CAD 11/13/2022 9:23 AM 2. MG MM DIG SCREENING MAMM BI W/CAD 10/23/2021 7:56 AM 3. MG MM DIG SCREENING MAMM BI W/CAD 10/19/2020 8:46 AM 4. MG MM DIG SCREENING MAMM BI W/CAD 10/14/2019 9:20 AM FINDINGS: MAMMOGRAPHY: Breast composition: There are scattered areas of fibroglandular density. Mass: None. Architectural distortion: No new or suspicious architectural distortion. Calcifications: No new or suspicious calcifications are present Asymmetric density: No new or suspicious asymmetric density is present Skin thickening: None. Axillary adenopathy: None. IMPRESSION: No mammographic evidence of malignancy. Recommend annual screening mammography unless otherwise clinically indicated. ASSESSMENT: BI-RADS category 1: Negative
== END ==
LOC: RAD 09:53
PROVIDERS: PCP Internal Medicine Adolescent Medicine; Visit Provider Nurse Practitioner Family
DX: Z12.31 Encounter for screening mammogram for malignant neoplasm of breast (principal)
CPT/HCPCS: 77063; 77067

== ENCOUNTER 2023-12-04 06:20 | Outpatient (CLI) | payer OTHER, SELFPAY ==
[2023-12-04 07:45] LABS: Basophils # 0.1 K/mm3 (0-0.2); Basophils % 1.1 % (0.1-2.0); Eosinophils # 0.3 K/mm3 (0.0-0.4); Eosinophils % 3.9 % (0.1-12.0); Hemoglobin 13.5 g/dL (12.2-16.2); Lymphocytes # 1.6 K/mm3 (0.7-4.5); Lymphocytes % 25.2 % (10-50); Mean Corpuscular HGB Conc 33.7 g/dL (31.8-35.4); Mean Corpuscular Hemoglobin 30.9 pg (27.0-31.2); Mean Corpuscular Volume 91.8 fl (81-99); Mean Platelet Volume 7.9 fl (7.4-10.4); Monocytes # 0.4 K/mm3 (0.1-1.0); Monocytes % 6.6 % (1.7-9.3); Neutrophils % 63.1 % (37.0-80.0); Platelet Count 388 K/mm3 (142-424); Red Blood Count 4.36 M/mm3 (4.20-5.40); Red Cell Distribution Width 13.3 % (11.5-17.5); White Blood Count 6.3 K/mm3 (4.8-10.8)
[2023-12-04 08:45] LABS: Alanine Aminotransferase 22 U/L (12-78); Albumin Level 4.1 g/dl (3.5-5.0); Albumin/Globulin Ratio 1.6 (1.1-1.8); Alkaline Phosphatase 61 U/L (38-126); Anion Gap 11.3 mEq/L (5-15); Aspartate Amino Transferase 28 U/L (14-36); Bilirubin,Total 0.4 mg/dl (0.2-1.3); Blood Urea Nitrogen 14 mg/dl (7-17); Calcium 9.2 mg/dl (8.4-10.2); Carbon Dioxide 28 mmol/L (22.0-30.0); Chloride 104 mmol/L (98-107); Cholesterol 165 mg/dl (140-200); Estimated Glomerular Filt Rate 66 ml/min (>60); GFR (African American) 80 ML/MIN (>60); Globulin 2.6 g/dL (1.3-3.2); Glucose 94 mg/dl (74-100); HDL Cholesterol 41 mg/dl (40-60); Potassium 4.3 mmoL/L (3.5-5.1); Sodium 139 mmol/L (136-145); Total Protein,Serum 6.7 g/dl (6.3-8.2); Triglycerides 86 mg/dl (30-150); VLDL Cholesterol 17 mg/dL (0-40)
[2023-12-04 08:56] LABS: Direct LDL Cholesterol 104.12 mg/dL (100-129)
[2023-12-04 13:00] LABS: Thyroid Stimulating Hormone 1.11 uIU/mL (0.465-4.68)
== END 2023-12-04 23:59 ==
LOC: LAB 06:21
PROVIDERS: PCP Nurse Practitioner Family; Visit Provider Nurse Practitioner Family
DX: Z00.00 Encounter for general adult medical examination without abnormal findings (principal); R53.83 Other fatigue
CPT/HCPCS: 36415; 80053; 80061; 84443; 85025

== ENCOUNTER 2024-12-03 07:46 | Outpatient (CLI) | payer OTHER, SELFPAY ==
[2024-12-03 08:03] LABS: Basophils # 0.1 K/mm3 (0-0.2); Basophils % 0.9 % (0.1-2.0); Eosinophils # 0.3 K/mm3 (0.0-0.4); Eosinophils % 4.3 % (0.1-12.0); Hematocrit 38.1 % (37.0-47.0); Hemoglobin 12.5 g/dL (12.2-16.2); Lymphocytes # 1.2 K/mm3 (0.7-4.5); Lymphocytes % 18.5 % (10-50); Mean Corpuscular HGB Conc 32.8 g/dL (31.8-35.4); Mean Corpuscular Hemoglobin 29.4 pg (27.0-31.2); Mean Corpuscular Volume 89.6 fl (81-99); Mean Platelet Volume 9.2 fl (7.4-10.4); Monocytes # 0.6 K/mm3 (0.1-1.0); Monocytes % 9.4 % (1.7-9.3); Neutrophils # 4.3 K/mm3 (1.8-7.8); Neutrophils % 66.7 % (37.0-80.0); Platelet Count 301 K/mm3 (142-424); Red Blood Count 4.25 M/mm3 (4.20-5.40); Red Cell Distribution Width 13.1 % (11.5-17.5); White Blood Count 6.5 K/mm3 (4.8-10.8)
[2024-12-03 08:46] LABS: Alanine Aminotransferase 28 U/L (12-78); Albumin/Globulin Ratio 1.9 (1.1-1.8); Alkaline Phosphatase 69 U/L (38-126); Anion Gap 11.2 mEq/L (5-15); Aspartate Amino Transferase 31 U/L (14-36); Bilirubin,Total 0.5 mg/dl (0.2-1.3); Blood Urea Nitrogen 20 mg/dl (7-17); Calcium 9.4 mg/dl (8.4-10.2); Carbon Dioxide 27 mmol/L (22.0-30.0); Chloride 104 mmol/L (98-107); Chol/HDL Ratio 3.4 (1-3.5); Cholesterol 134 mg/dl (140-200); Estimated Glomerular Filt Rate 58 ml/min (>60); GFR (African American) 71 ML/MIN (>60); Globulin 2.1 g/dL (1.3-3.2); Glucose 86 mg/dl (74-100); HDL Cholesterol 39 mg/dl (40-60); Potassium 4.2 mmoL/L (3.5-5.1); Sodium 138 mmol/L (136-145); Total Protein,Serum 6.1 g/dl (6.3-8.2); Triglycerides 75 mg/dl (30-150); VLDL Cholesterol 15 mg/dL (0-40)
[2024-12-03 08:58] LABS: Direct LDL Cholesterol 87.27 mg/dL (100-129)
[2024-12-03 09:17] LABS: Thyroid Stimulating Hormone 1.53 uIU/mL (0.465-4.68)
== END 2024-12-03 23:59 | disposition home or self-care (01) ==
LOC: LAB 07:47
PROVIDERS: PCP Nurse Practitioner Family; Visit Provider Nurse Practitioner Family
DX: R53.83 Other fatigue (principal); E04.1 Nontoxic single thyroid nodule; Z00.00 Encounter for general adult medical examination without abnormal findings
CPT/HCPCS: 36415; 80053; 80061; 84443; 85025

== ENCOUNTER 2024-12-10 07:18 | Outpatient (CLI) | payer OTHER, SELFPAY ==
--- NOTE | 2024-12-10 08:10 | MM_ITS ---
PROCEDURE INFORMATION: Exam: MG Bilateral Screening 3D Mammography Exam date and time: 12/10/2024 8:05 AM Age: 49 years old Clinical indication: Screening examination TECHNIQUE: Imaging protocol: Bilateral Screening tomosynthesis and 2D mammography including computer-aided detection (CAD) when performed. COMPARISON: 1. MG MM DIG SCREENING MAMM BI W/CAD 11/14/2023 9:51 AM 2. MG MM DIG SCREENING MAMM BI W/CAD 11/13/2022 9:23 AM FINDINGS: MAMMOGRAPHY: Breast composition: There are scattered areas of fibroglandular density. Mass: None. Architectural distortion: None. Calcifications: No suspicious calcifications. Asymmetric density: None. Skin thickening: None. Axillary adenopathy: None. IMPRESSION: No mammographic evidence of malignancy. Annual screening is recommended unless otherwise clinically indicated. ASSESSMENT: BI-RADS Category 1: Negative.
== END 2024-12-10 23:59 | disposition home or self-care (01) ==
LOC: RAD 07:18
PROVIDERS: PCP Nurse Practitioner Family; Visit Provider Nurse Practitioner Family
DX: Z12.31 Encounter for screening mammogram for malignant neoplasm of breast (principal)
CPT/HCPCS: 77063; 77067

== ENCOUNTER 2025-03-15 11:45 | Outpatient (CLI) | payer OTHER, SELFPAY ==
[2025-03-15 13:01] LABS: Alanine Aminotransferase 20 U/L (12-78); Albumin Level 4.1 g/dl (3.5-5.0); Albumin/Globulin Ratio 1.5 (1.1-1.8); Alkaline Phosphatase 67 U/L (38-126); Anion Gap 8.1 mEq/L (5-15); Aspartate Amino Transferase 29 U/L (14-36); Bilirubin,Total 0.5 mg/dl (0.2-1.3); Blood Urea Nitrogen 7 mg/dl (7-17); Calcium 9.2 mg/dl (8.4-10.2); Carbon Dioxide 28 mmol/L (22.0-30.0); Chloride 106 mmol/L (98-107); Estimated Glomerular Filt Rate 88 ml/min (>60); GFR (African American) 107 ML/MIN (>60); Globulin 2.7 g/dL (1.3-3.2); Glucose 79 mg/dl (74-100); Potassium 4.1 mmoL/L (3.5-5.1); Sodium 138 mmol/L (136-145); Total Protein,Serum 6.8 g/dl (6.3-8.2)
== END 2025-03-15 23:59 | disposition home or self-care (01) ==
LOC: LAB 11:47
PROVIDERS: PCP Nurse Practitioner Family; Visit Provider Nurse Practitioner Family
DX: N18.2 Chronic kidney disease, stage 2 (mild) (principal)
CPT/HCPCS: 36415; 80053

== ENCOUNTER 2025-06-22 15:50 | Outpatient (CLI) | payer OTHER, SELFPAY ==
--- NOTE | 2025-06-22 15:52 | XR_ITS ---
FINAL REPORT TECHNIQUE: Chest PA & Lateral CLINICAL HISTORY: Shortness of breath COMPARISON: None FINDINGS: 2 views of the chest were performed. The heart size is normal. The mediastinum is within normal limits. There is no acute cardiopulmonary process. There are no pleural effusions. There is no pneumothorax. The bony thorax appears intact. IMPRESSION: No acute cardiopulmonary process. Reviewed, Interpreted and Dictated by Kali Arevalo MD Transcribed by Eli López Authenticated and [facility]
--- OUTSIDE RECORDS SUMMARY | 2025-06-22 15:52 | XMS_ITS | Clinical Summary ---
Author Organization Healthcare Address [address] [id number] Care Team Providers Care Pastry Cook Helper Name Role Phone Derrick Elizabeth MD Primary Care Provider Allergies No known active allergies Medications aspirin 500 MG EC tablet 1 Active bisoprolol (Zebeta) 5 MG tablet 1 Active fluticasone (Flonase) 50 MCG/ACT nasal spray 1 Active HYDROcodone-juan a taminophen ([place]) 5-325 MG tablet TAKE 1 TABLET EVERY 4 TO 6 HOURS NEEDED FOR severe breakthrough PAIN. 1 Active Ibuprofen-Famot idine (Duexis) 800-26.6 MG tablet if needed. 1 Active montelukast (Singulair) 10 MG tablet 1 Active Active Problems Problem Noted Date Diagnosed Date Encounter for preoperative s creening laboratory testing for COVID-19 virus 01/02/2021 Family History Medical History Relation Name Comments Hypertension Father Diabetes Mother Parkinson Disease Mother Relation Name Status Comments Father Mother Social History Tobacco Use Types Packs/Day Years Used Date Smoking Tobacco: Never Smokeless Tobacco: Never PHQ-2 Answer Date Recorded Patient Health Questionnaire-2 Score 0 01/20/2025 Comments Unknown Sex and Gender Information Value Date Recorded Sex Assigned at Female 05/17/2021 10:07 AM EDT Legal Sex Female 8:08 PM EDT Gender Identity Female 05/17/2021 10:07 AM EDT Sexual Orientation Straight 05/17/2021 10 :07 AM EDT Last Filed Vital Signs Vital Sign Reading Time Taken Comments Blood Pressure 117/74 01/20/2025 12:45 PM EST Pulse 100 01/16/2023 10:00 AM EST Temperature - - Respiratory Rate 20 01/10/2022 10:44 AM EST Oxygen Saturation 99% 01/16/2023 10:00 AM EST Inhaled Oxygen Concentration - - Weight 77.1 kg (170 lb) 01/20/2025 12:45 PM EST Height 162.6 cm (5' 4 ) 01/20/2025 12:45 PM EST Body Mass Index 29.18 01/20/2025 12:45 PM EST Plan of Treatment Health Maintenance Due Date Last Done Comments [facility]-HIV Screening 1975 [facility]-Hepatitis C Screening 1975 [facility]-Infant/Child/Adol SDOH Screenings 1975 [facility]- SDOH Screenings 1991 [facility]-Adult SDOH Screenings 1991 [facility]-Hepatitis B Vaccines (1 of 3 - 19+ 3-dose series) 1992 CT Colonography 2018 Colonoscopy 2018 FIT-DNA 2018 FIT 2018 FOBT 2018 Sigmoidoscopy 2018 [facility]-Colorectal Cancer Screening 2018 [facility]-Breast Cancer Screening 2023 [facility]-Pneumococcal Vaccine: 50 + Years (1 of 1 - PCV) 2023 [facility]-Zoster Vaccines (1 of 2) 2023 [id number] Vaccine (3 - 2023- season) 2024 06/26/2021, 06/05/2021 [facility]-Influenza Vaccine (#1) 2025 [facility]-Depression Screening 01/20/2026 01/20/2025 [facility]-DTaP,Tdap,and Td Vaccine s (2 - Td or Tdap) 12/01/2034 12/01/2024 [facility]-Obesity Intervention Completed 025, 01/22/2024, 01/16/2023 HPV Vaccines Aged Out No longer eligi ble based on patient's age to complete this topic [facility]-HIB Vaccines Aged Out No longer e ligible based on patient's age to complete this topic [facility]-Hepatitis A Vaccines Aged Out No longer eligible based on patient's age to complete this topic [facility]-IPV Vaccines Aged Out No longer e ligible based on patient's age to complete this topic [facility]-Rotavirus Vaccines Aged Out No lo nger eligible based on patient's age to complete this topic Insurance Care Teams Pastry Cook Helper Relationship Specialty Start Date End Date Derrick Elizabeth MD [address] [facility] [address] [place] [address] PCP - General 03/31/21
== END 2025-06-22 23:59 | disposition home or self-care (01) ==
LOC: RAD 15:50
PROVIDERS: PCP Nurse Practitioner Family; Visit Provider Physician Assistant
DX: R06.09 Other forms of dyspnea (principal)
CPT/HCPCS: 71046

== ENCOUNTER 2025-07-06 12:59 | Outpatient (CLI) | payer OTHER, SELFPAY ==
--- OUTSIDE RECORDS SUMMARY | 2025-07-06 13:05 | XMS_ITS | Clinical Summary ---
Author Organization Healthcare Address [address] [id number] Care Team Providers Care Asset Availability Leader Name Role Phone Derrick Elizabeth MD Primary Care Provider [phone] Allergies No known active allergies Medications aspirin 500 MG EC tablet 1 Active bisoprolol (Zebeta) 5 MG tablet 1 Active fluticasone (Flonase) 50 MCG/ACT nasal spray 1 Active HYDROcodone-juan a taminophen ([place]) 5-325 MG tablet TAKE 1 TABLET EVERY [...] [facility]-HIV Screening 1975 [facility]-Hepatitis C Screening 1975 [facility]-/Child/Adol SDOH Screenings 1973 [facility]- SDOH Screenings 1991 [facility]-Adult SDOH Screenings 1991 [facility]-Hepatitis B Vaccines (1 of 3 - 19+ 3-dose series) 1992 CT Colonography 2018 Colonoscopy 2018 FIT-DNA 2018 FIT 2018 FOBT 2018 Sigmoidoscopy 2018 [facility]-Colorectal Cancer Screening 2018 [facility]-Breast Cancer Screening 2023 [facility]-Pneumococcal Vaccine: 50 + Years (1 of 1 - PCV) 2023 [facility]-Zoster Vaccines (1 of 2) 2023 [id number] Vaccine (3 - 2023- season) 2024 06/26/2021, [...] to complete this topic Insurance Care Teams Asset Availability Leader Relationship Specialty Start Date End Date Derrick Elizabeth MD [address] [facility] [address] [place] [address] PCP - General 03/31/21
--- NOTE | 2025-07-06 13:30 | CT_ITS ---
FINAL REPORT TECHNIQUE: Axial images were obtained through the chest without contrast. Reconstructed images were obtained and reviewed. This study was performed with techniques to keep radiation doses as low as reasonably achievable, (ALARA). Individualized dose reduction techniques using automated exposure control or adjustment of mA and/or kV according to the patient's size were employed. CLINICAL HISTORY: dyspnea FINDINGS: There are calcified right hilar lymph nodes. The lungs are clear. The heart size is normal. There is no pericardial or pleural effusion. No suspicious infiltrate or nodule identified. Limited images of the upper abdomen reveal benign-appearing cyst in the medial segment of the left lobe of the liver measuring 1.8 cm and in the posterior right lobe of the liver measuring 1.9 cm. IMPRESSION: No acute intrathoracic abnormality. Benign hepatic cysts. Reviewed, Interpreted and Dictated by Kali Arevalo MD Transcribed by Lilly Hamilton Authenticated and [facility]
== END 2025-07-06 23:59 ==
LOC: RAD 12:59
PROVIDERS: PCP Nurse Practitioner Family; Visit Provider Physician Assistant
DX: R06.09 Other forms of dyspnea (principal); Z87.09 Personal history of other diseases of the respiratory system; Z77.22 Contact with and (suspected) exposure to environmental tobacco smoke (acute) (chronic); K76.89 Other specified diseases of liver
CPT/HCPCS: 71250